=== PATIENT | female | born 1955 | race Asian ===

== ENCOUNTER 2019-01-10 18:14 | Inpatient (IN) | payer MEDICARE, OTHER ==
--- NOTE | 2019-01-10 18:38 | ED Physician Chart ---
ED Chief Complaint/HPI - Patient Information Date Seen:: 01/10/19 Time Seen:: 18:33 Chief Complaint:: mental disorder History of Present Illness:: this is a 63 yo female [facility] and treatment of her recent increase anxiety and mentation. Allergies:: Allergies Allergy/AdvReac Type Severity Reaction Status Date / Time No Known Allergies Allergy Verified 01/10/19 18:32 Historian:: Patient, Medical Records Review:: Nurse's Note Reviewed, Transfer documents Reviewed ED Review of Systems - Review of Systems General/Constitutional: No fever, No chills, No weight loss, No weakness, No diaphoresis, No edema, No loss of appetite, Other (this patient is unable to give a review of systems.) Skin: No skin lesions, No rash, No bruising Head: No headache, No light-headedness Eyes: No loss of vision, No pain, No diplopia ENT: No earache, No nasal drainage, No sore throat, No tinnitus Neck: No neck pain, No swelling, No thyromegaly, No stiffness, No mass noted Cardio Vascular: No chest pain, No palpitations, No PND, No orthopnea, No edema Pulmonary: No SOB, No cough, No sputum, No wheezing GI: No nausea, No vomiting, No diarrhea, No pain, No melena, No hematochezia, No constipation, No hematemesis G/U: No dysuria, No frequency, No hematuria Musculoskeletal: No bone or joint pain, No back pain, No muscle pain Endocrine: No polyuria, No polydipsia Psychiatric: No prior psych history, No depression, No anxiety, No suicidal ideation Hematopoietic: No bruising, No lymphadenopathy Allergic/Immuno: No urticaria, No angioedema Neurological: No syncope, No focal symptoms, No weakness, No paresthesia, No headache, No seizure, No dizziness, No confusion, No vertigo ED Past Medical History - Past Medical History Obtainable: Yes Past Medical History: HTN, DM, Dyslipidemia, Dementia, Other (parkinson's ) Family History: None Social History: Non Smoker, No Alcohol, No Drug Use, Care Facility Surgical History: None Psychiatricy History: Depression Medication: Reviewed ED Physical Exam - Physical Examination General/Constitutional: Awake, Well-developed, well-nourished, Alert, No distress, GCS 15, Non-toxic appearing, Ambulatory Head: Atraumatic Eyes: Lids, conjuctiva normal, PERRL, EOMI Skin: Nl inspection, No rash, No skin lesions, No ecchymosis, Well hydrated, No lymphadenopathy ENMT: External ears, nose nl, Nasal exam nl, Lips, teeth, gums nl Neck: Nontender, Full ROM w/o pain, No JVD, No nuchal rigidity, No bruit, No mass, No stridor Respiratory: Nl effort/Exclusion, Clear to Auscultation, No Wheeze/Rhonchi/Rales Cardio Vascular: RRR, No murmur, gallop, rubs, NL S1 S2 GI: No tenderness/rebounding/guarding, No organomegaly, No hernia, Normal BS's, Nondistended, No mass/bruits, No McBurney tenderness : No CVA tenderness Extremities: No tenderness or effusion, Full ROM, normal strength in all extremities, No edema, Normal digits & nails Neuro/Psych: Alert/oriented, DTR's symmetric, Normal sensory exam, Normal motor strength, Judgement/insight normal, Mood normal, Normal gait, No focal deficits Misc: Normal back, No paraspinal tenderness ED Assessment - Assessment General Assessment: mental disorder ED Septic Shock - . Is Septic Shock (SBP<90, OR Lactate>4 mmol\L) present?: No ED Reassessment (Disposition) - Patient Disposition Admitting Medical Physician:: Brian Duval Admitting Psych Physician:: Kp Dasilva
[2019-01-10 19:03] LABS: % EOSINOPHILS 0.8 % (0.0-5.0); % LYMPHOCYTES 11.6 % (20.0-50.0); % MONOCYTES 4.8 % (2.0-10.0); % NEUTROPHILS 82.8 % (40.0-80.0); EOSINOPHILE ABSOLUTE 0.1 Th/cmm (0.1-0.4); HEMATOCRIT 39.4 % (41.0-60); HEMOGLOBIN 12.8 gm/dL (12-16); LYMPHOCYTE ABSOLUTE 1.3 Th/cmm (1.5-3.0); MEAN CORPUSCULAR HEMOGLOBIN 28.2 pg (27.0-31.0); MEAN CORPUSCULAR HGB CONC 32.4 pg (28.0-36.0); MONOCYTE ABSOLUTE 0.5 Th/cmm (0.3-1.0); PLATELET COUNT 260 Th/cmm (150-400); RED BLOOD COUNT 4.53 Mil/cmm (3.80-5.20); RED CELL DISTRIBUTION WIDTH 12.2 % (11.5-20.0); WHITE BLOOD COUNT 10.9 Th/cmm (4.8-10.8)
[2019-01-10 19:17] LABS: INR 0.93 (0.5-1.4); PROTHROMBIN TIME (TEST) 9.7 SECONDS (9.5-11.5)
[2019-01-10 19:18] LABS: ALB/GLOB RATIO 1.4 (1.0-1.8); ANION GAP 14.4 (7.0-16.0); BILIRUBIN,TOTAL 0.4 mg/dL (0.3-1.0); CALCIUM SERUM 9.9 mg/dL (8.6-10.3); CREATININE - SERUM 1.4 mg/dL (0.6-1.2); GFR AFRICAN-AMERICAN 48.5 ml/min (>90); GFR NON AFRICAN-AMERICAN 40.1 ml/min; POTASSIUM SERUM 4.4 mEq/L (3.5-5.1); TOTAL PROTEIN,SERUM 6.9 gm/dL (6.0-8.3)
[2019-01-10 21:18] LABS: URINE SOURCE CLEAN C
[2019-01-10 21:22] LABS: URINE BILIRUBIN SMALL (NEGATIVE); URINE BLOOD NEGATIVE (NEGATIVE); URINE GLUCOSE (UA) NEGATIVE (NEGATIVE); URINE KETONE 15 mg/dL (NEGATIVE); URINE LEUKOCYTE ESTERASE TRACE (NEGATIVE); URINE MICROSCOPIC INDICATED? YES; URINE NITRATE NEGATIVE (NEGATIVE); URINE PROTEIN 30 mg/dL (NEGATIVE)
[2019-01-10 21:24] LABS: URINE CLARITY CLEAR (CLEAR); URINE COLOR YELLOW
[2019-01-10 21:28] LABS: URINE BACTERIA 1+ /hpf (NONE SEEN); URINE EPITHELIAL CELLS MODERATE /lpf (FEW); URINE FINE GRANULAR CAST 0-2 /lpf (NONE SEEN); URINE RBC 0-2 /hpf (0-5)
[2019-01-10 22:12] VITALS: BP 138/92
[2019-01-10] MEDS ORDERED: Maalox 30 mL Cup PO PRN (22:13)
[2019-01-10] MEDS ORDERED: Magnesium Hydroxide (MOM) 30 mL UDC PO PRN (22:13)
[2019-01-11 06:52] LABS: CHOLESTEROL 109 mg/dL (<200); HDL -HIGH DENSITY LIPOPROTEIN 48 mg/dL (23-92); TRIGLYCERIDES 53 mg/dL (<150)
[2019-01-11] MEDS: Multivitamin Tab PO SCH (09:10)
[2019-01-11] MEDS: Calcium Carb/Vit D 500 mg/200 U Tab PO SCH (09:11)
--- NOTE | 2019-01-11 09:45 | Diagnostic Imaging Report ---
Chest x-ray single view History: Shortness of breath Comparison: None The heart size is normal. No focal pulmonary parenchymal processes. No hilar or mediastinal abnormalities. Impression: No acute abnormalities
--- NOTE | 2019-01-11 09:46 | Diagnostic Imaging Report ---
CT scan of the brain without intravenous contrast HISTORY: Shortness of breath Total DLP equals 573 CTDI equals 35.2 Axial sections were obtained from the base of the skull to the vertex. There is prominence/enlargement of the ventricular system size. Associated enlargement of cerebral sulci and subarachnoid cisterns. Findings are consistent with changes of generalized cerebral atrophy. No acute parenchymal abnormalities. No acute cerebral hemorrhage. Hypodensity is seen within the supratentorial white matter regions without mass effect. The findings may be associated with chronic small vessel ischemic disease. No extra-axial masses or abnormal fluid collections. Vascular calcifications noted . IMPRESSION: 1. No acute abnormalities 2. Cerebral atrophy 3. Supratentorial white matter changes that may reflect chronic small vessel ischemic disease
--- NOTE | 2019-01-11 12:23 | Psychiatric Evaluation ---
DATE OF SERVICE: 01/10/2019 IDENTIFYING DATA: The patient is a 63-year-old woman, resident of [facility]. Information obtained by directly interviewing the patient as well as reviewing the admission papers and they are reliable. JUSTIFICATION FOR HOSPITALIZATION: The patient is admitted here on a voluntary basis in view of her depression and anxiety. CHIEF COMPLAINT: "I am not feeling well." HISTORY OF PRESENT ILLNESS: This is the first psychiatric hospitalization to [facility] for this patient who is reported to have been extremely depressed and throwing herself onto the floor and having crying spells on and off. The patient is not able to care for self and hence the patient has been referred to a higher level of care. PAST PSYCHIATRIC HISTORY: Details are not known. MEDICAL HISTORY: Physical examination is requested by Dr. Duval. The patient has been diagnosed to have multiple problems such as the hyperlipidemia, diabetes, Parkinson's disease, and hypertension. ALLERGIES: No allergies are reported at this time. STRENGTH AND ASSETS: The patient is motivated. SUBSTANCE ABUSE HISTORY: None. PHYSICAL OR SEXUAL ABUSE HISTORY: Details are not known. MENTAL STATUS EXAMINATION: The patient is a 63-year-old woman looking her stated age, superficially cooperative. Eye contact is poor. Mood is a little bit depressed. Affect is constricted. The patient's insight and judgment at this time are noted to be still impaired. Impulse control is noted to be poor. Coping skills are also noted to be very poor. The patient has been having difficult time to cope with the stress. The patient is isolative and withdrawn at this time. The patient is not able to provide much of information. The patient has paranoid delusions, but denies any command hallucinations and the patient is going to be currently placed on olanzapine and mirtazapine and the patient is going to be closely monitored with these medications. The patient is also on the valproic acid for her mood swings. DIAGNOSTIC IMPRESSION: AXIS I: Psychotic disorder, not otherwise specified. 2. Rule out schizoaffective disorder. AXIS II: None. AXIS III: As per Dr. Duval. IMMEDIATE TREATMENT PLAN: The patient is going to be continued on these medications. Encouraged to participate in the groups and verbalize the concerns. Once stabilized, the patient is going to be discharged to [facility] to be followed up on an outpatient basis. JOB# [id number]
--- NOTE | 2019-01-11 14:13 | History and Physical ---
History of Present Illness - HPI Chief Complaint: 63 y/o female patent was brought into the ER due to Increased anxiety and Mentation. HPI: 63 y/o female patent was admitted to [facility] due to Increased anxiety and Mentation. Patient has history of Hypertension, Diabetes Mellitus, Hyperlipidemia, Depression and Parkinson's Disease. Patient had an ER assessment and was evaluated. Patient had a complete workup done. Chest x-ray was done which showed No acute abnormalities. Ct scan of the brain was also done which showed No acute abnormalities, Cerebralatrophy and Supratentorial white matter changes that may reflect chronic small vessel ischemic disease. Patient was diagnosed with Psychotic Disorder, Rule out Schizoaffective Disorder , Hypertension, Diabetes Mellitus, Hyperlipidemia, Depression and Parkinson's Disease. Patient will have a Psyche consult and I will follow patient. Patient will continue to be treated and monitored. Patient will continue present treatment plan as ordered. Vital Signs: Last Vital Signs Temp 98 F 01/11/19 06:06 Pulse 84 01/11/19 06:06 Resp 18 01/11/19 06:06 BP 109/67 01/11/19 06:06 Pulse Ox 97 01/11/19 06:06 Past Medical History Cardiovascular: Report: HTN Pulmonary: Report: No Pertinent Hx INOCULATOR: Report: Dementia, Other (History of Parkinson's disease.) Psych: Report: Anxiety, Depression, Other (Mood swings.) Musculoskeletal: Report: No Pertinent Hx, Weakness Rheumatologic: Report: No pertinent Hx Infectious Disease: Report: No Pertinent Hx Renal/: Report: No Pertinent Hx Endocrine: Report: Diabetes Dermatology: Report: No Pertinent Hx - Past Surgical History Past Surgical History: No pertinent Hx Family Medical History - Family Member Mother History Unknown: Yes Ethnicity: Unknown Living Status: Unknown Hx Family Cancer: No Hx Family Coronary Artery Disease: No Hx Family Congestive Heart Failure: No Hx Family Hypertension: No Hx Family Stroke: No Hx Family Diabetes: No Hx Family Seizures: No Hx Family Dementia: No Hx Family AIDS: No Hx Family HIV: No Hx Family COPD: No Hx Family Hepatitis: No Hx Family Psychiatric Problems: No Hx Family Tuberculosis: No Social History Smoke: No Alcohol: None Drugs: None Lives: [facility] Domestic Violence: Negative Health Maintenance Health Maintenance: Other (see chart.) - Medications Home Medications: Home Medication Medication Instructions Recorded Type Acetaminophen [Tylenol] 650 mg PO Q6H PRN 01/10/19 History Atorvastatin Calcium [Lipitor] 20 mg PO HS 01/10/19 History Calcium Carbonate/Vitamin D3 1 each PO DAILY 01/10/19 History [Calcium 500 + Vit D Caplet] Carbidopa/Levodopa 2 odt PO AC 01/10/19 History [Carbidopa/Levodopa 25 mg-100 mg] Divalproex DR [Depakote DR] 125 mg PO BID 01/10/19 History Lamotrigine [Lamictal] 200 mg PO BID 01/10/19 History Lorazepam [Ativan] 0.5 mg PO Q6H PRN 01/10/19 History Meclizine HCl 25 mg PO TID 01/10/19 History Mirtazapine [Remeron] 7.5 mg PO HS 01/10/19 History OLANZapine [ZyPREXA] 2.5 mg PO DAILY 01/10/19 History OLANZapine [ZyPREXA] 12.5 mg PO HS 01/10/19 History Sennosides A and B [Senna] 8.6 mg PO BID 01/10/19 History metFORMIN [Glucophage] 500 mg PO DAILY 01/10/19 History Other Medications: please see medication reconciliation sheet. - Allergies Allergies/Adverse Reactions: Allergies Allergy/AdvReac Type Severity Reaction Status Date / Time No Known Allergies Allergy Verified 01/10/19 18:32 Review of Systems - Review of Systems Constitutional: Report: No Significant Eyes: Report: No Significant ENT: Report: No Significant Respiratory: Report: No Significant Cardiovascular: Report: No Significant Gastrointestinal: Report: No Significant Genitourinary: Report: No Significant Musculoskeletal: Report: No Significant Skin: Report: No Significant Neurological: Report: Other (Mood swings.) Physical Exam - Physical Exam HEENT: Report: Ears Nose Throat within normal limits Neck: Report: Within normal limits Cardiovascular Systems: Report: +s1/s2 noted Respiratory: Report: Breath Sounds are within normal limits Abdomen: Report: Non-tender to palpation Back: Report: Inspection of back is within normal limits. Extremities: Report: Non-tender to palpation. Skin: Report: Color of skin is within normal limits Neuro/Psych: Report: Depressed affect - Lab Results All Lab Results last 24 hours: Laboratory Results - last 24 hr 01/10/19 01/10/19 01/10/19 18:59 18:59 18:59 WBC RBC Hgb Hct MCV MCH MCHC Differential RDW Plt Count MPV Neutrophils % Lymphocytes % Monocytes % Eosinophils % Basophils % PT 9.7 INR 0.93 PTT (Actin FS) 20.6 L Sodium Potassium Chloride Carbon Dioxide Anion Gap BUN Creatinine Est GFR ( Amer) Est GFR (Non-Af Amer) BUN/Creatinine Ratio Glucose Calcium Total Bilirubin AST ALT Alkaline Phosphatase Troponin I < 0.01 L Total Protein Albumin Globulin Albumin/Globulin Ratio Triglycerides Cholesterol LDL Cholesterol Direct HDL Cholesterol TSH 0.89 Urine Source Urine Color Urine Clarity Urine pH Ur Specific [place] Urine Protein Urine Glucose (UA) Urine Ketones Urine Blood Urine Nitrate Urine Bilirubin Urine Urobilinogen Ur Leukocyte Esterase Urine RBC Urine WBC Ur Epithelial Cells Urine Bacteria Fine Granular Casts Urine Mucus 01/10/19 01/10/19 01/10/19 18:59 18:59 19:55 WBC 10.9 H RBC 4.53 Hgb 12.8 Hct 39.4 L MCV 87.0 MCH 28.2 MCHC Differential 32.4 RDW 12.2 Plt Count 260 MPV 7.0 Neutrophils % 82.8 H Lymphocytes % 11.6 L Monocytes % 4.8 Eosinophils % 0.8 Basophils % 0.0 PT INR PTT (Actin FS) Sodium 140 Potassium 4.4 Chloride 101 Carbon Dioxide 29.0 Anion Gap 14.4 BUN 24 Creatinine 1.4 H Est GFR ( Amer) 48.5 Est GFR (Non-Af Amer) 40.1 BUN/Creatinine Ratio 17.1 Glucose 160 H Calcium 9.9 Total Bilirubin 0.4 AST 16 ALT 6 L Alkaline Phosphatase 45 Troponin I Total Protein 6.9 Albumin 4.0 Globulin 2.9 Albumin/Globulin Ratio 1.4 Triglycerides Cholesterol LDL Cholesterol Direct HDL Cholesterol TSH Urine Source CLEAN C Urine Color YELLOW Urine Clarity CLEAR Urine pH 7.0 Ur Specific [place] 1.020 Urine Protein 30 H Urine Glucose (UA) NEGATIVE Urine Ketones 15 H Urine Blood NEGATIVE Urine Nitrate NEGATIVE Urine Bilirubin SMALL H Urine Urobilinogen 1.0 Ur Leukocyte Esterase TRACE H Urine RBC 0-2 Urine WBC 6-10 H Ur Epithelial Cells MODERATE Urine Bacteria 1+ H Fine Granular Casts 0-2 H Urine Mucus MODERATE 01/11/19 06:15 WBC RBC Hgb Hct MCV MCH MCHC Differential RDW Plt Count MPV Neutrophils % Lymphocytes % Monocytes % Eosinophils % Basophils % PT INR PTT (Actin FS) Sodium Potassium Chloride Carbon Dioxide Anion Gap BUN Creatinine Est GFR ( Amer) Est GFR (Non-Af Amer) BUN/Creatinine Ratio Glucose Calcium Total Bilirubin AST ALT Alkaline Phosphatase Troponin I Total Protein Albumin Globulin Albumin/Globulin Ratio Triglycerides 53 Cholesterol 109 LDL Cholesterol Direct 43 L HDL Cholesterol 48 TSH Urine Source Urine Color Urine Clarity Urine pH Ur Specific [place] Urine Protein Urine Glucose (UA) Urine Ketones Urine Blood Urine Nitrate Urine Bilirubin Urine Urobilinogen Ur Leukocyte Esterase Urine RBC Urine WBC Ur Epithelial Cells Urine Bacteria Fine Granular Casts Urine Mucus - Assessment Assessment: Psychotic Disorder. Rule out schizoaffective disorder. Anxiety. Depression. HTN. DM. Dyslipidemia. Dementia. Parkinson's Disease. Current Active Problems Problem Status Onset FREQUENT FALLS WITH BEHAVIORAL CHANGE Acute - Plan Plan: Continuation of care. Continue present meds as directed. Monitor diet. Psych consult. Fall precaution. supportive care. Continue present care treatment plan.
[2019-01-11] MEDS: Atorvastatin Calcium 10 MG TAB PO SCH (20:58)
[2019-01-12] MEDS: Calcium Carb/Vit D 500 mg/200 U Tab PO SCH (09:53)
[2019-01-12] MEDS: Multivitamin Tab PO SCH (09:53)
[2019-01-12] MEDS: Atorvastatin Calcium 10 MG TAB PO SCH (20:47)
--- NOTE | 2019-01-12 23:45 | Progress Notes ---
DATE: 01/12/2019 SUBJECTIVE: Staff was spoken to. The patient is interviewed. Mood is noted to be depressed. Affect is constricted. Continues to be isolative and withdrawn. Paranoid delusions are noted and the patient's insight and judgment are noted to be still impaired. Impulse control seems to be limited. The patient is, however, able to tolerate the medication. ASSESSMENT: The patient is still psychotic and depressed. PLAN: To continue the patient with the supportive therapy, encouraged the patient to verbalize the concerns rather than to act out. JOB# [id number]
--- NOTE | 2019-01-13 03:06 | Consultation ---
DATE OF CONSULTATION: 01/12/2019 REFERRING PHYSICIAN: Kp Dasilva MD TYPE OF CONSULTATION: Psychology. HISTORY OF PRESENT ILLNESS: The patient is a 63-year-old female. The patient is a resident of [facility]. The following is by review of the medical record as well as by the patient's self-report. The patient is being admitted due to depression and anxiety. Upon interview, the patient states that she is not feeling well. The staff at the patient's facility reported that she had become extremely depressed with crying spells and at times throwing herself onto the floor. The patient did not answer questions about suicidal ideation, plan, or intention at the time of this clinical interview. PAST MEDICAL HISTORY: Please see history and physical by Dr. Duval. PAST PSYCHIATRIC HISTORY: Records are unavailable. Details are unknown. SUBSTANCE ABUSE HISTORY: The patient denied any history of alcohol, tobacco, or illicit drug use. PSYCHOSOCIAL HISTORY: The patient did not answer questions about occupational or educational history. The patient states she is . She states she has one son named Kareem and a friend named Ana Rosa that are involved in her care. The patient stated no specific buddhist affiliation. The patient denied any history of physical or sexual abuse. She denies any current legal problems. The patient expects to return to her facility upon discharge. MENTAL STATUS EXAMINATION: The patient appears to be her stated age. Attitude is superficially cooperative. Eye contact is poor. Speech is slow. Mood is depressed. Affect is constricted. Thought process shows to be depressogenic and somewhat confused. The patient denied any auditory or visual hallucinations. The patient denied any suicidal ideation, plan, or intention. There is possible paranoid ideation. The patient's behavior by history has been isolative and withdrawn. The patient did not answer questions regarding throwing herself on the floor or having tearful episodes. Impulse control is inadequate. Concentration is poor. This needs further evaluation. The patient's sensorium is alert and oriented to self and place. The patient did not participate in the memory assessment. The patient did not participate in the interpretation of proverbs. Insight is poor. Judgment is compromised. DIAGNOSTIC IMPRESSION: AXIS I: Psychotic disorder, not otherwise specified. AXIS II: Deferred. AXIS III: Per Dr. Duval. TREATMENT PLAN: The patient has been seen by Dr. Dasilva for psychiatric evaluation and for the management of the patient's psychotropic medications. The patient is continued on her current medication according to the attending psychiatrist. We will provide supportive psychotherapy to include reality orientation, differentiation, and integration. We will provide coping strategies for phase of life issues. We will encourage the patient to verbalize her concerns. We will provide a daily opportunity for the patient to contract for safety. We will provide motivational enhancement for the patient to become compliant and stay compliant with all aspects of her care and treatment. Thank you, Dr. Dasilva, for this consult and the opportunity to participate in this patient's care. JOB# [id number] [place]
[2019-01-13] MEDS: Calcium Carb/Vit D 500 mg/200 U Tab PO SCH (09:07)
[2019-01-13] MEDS: Multivitamin Tab PO SCH (09:08)
--- NOTE | 2019-01-13 17:04 | Internal Medicine Prog Note ---
Internal Medicine Subjective - Subjective Service Date: 01/13/19 Patient seen and examined:: with staff Patient is:: awake Per staff patient has:: tolerating meds Internal Medicine Objective - Results Result Diagrams: 01/10/19 18:59 01/10/19 18:59 Recent Labs: Laboratory Last Values WBC 10.9 Th/cmm (4.8-10.8) H 01/10/19 18:59 RBC 4.53 Mil/cmm (3.80-5.20) 01/10/19 18:59 Hgb 12.8 gm/dL (12-16) 01/10/19 18:59 Hct 39.4 % (41.0-60) L 01/10/19 18:59 MCV 87.0 fl (81-100) 01/10/19 18:59 MCH 28.2 pg (27.0-31.0) 01/10/19 18:59 MCHC Differential 32.4 pg (28.0-36.0) 01/10/19 18:59 RDW 12.2 % (11.5-20.0) 01/10/19 18:59 Plt Count 260 Th/cmm (150-400) 01/10/19 18:59 MPV 7.0 fl 01/10/19 18:59 Neutrophils % 82.8 % (40.0-80.0) H 01/10/19 18:59 Lymphocytes % 11.6 % (20.0-50.0) L 01/10/19 18:59 Monocytes % 4.8 % (2.0-10.0) 01/10/19 18:59 Eosinophils % 0.8 % (0.0-5.0) 01/10/19 18:59 Basophils % 0.0 % (0.0-2.0) 01/10/19 18:59 PT 9.7 SECONDS (9.5-11.5) 01/10/19 18:59 INR 0.93 (0.5-1.4) 01/10/19 18:59 PTT (Actin FS) 20.6 SECONDS (26.0-38.0) L 01/10/19 18:59 Sodium 140 mEq/L (136-145) 01/10/19 18:59 Potassium 4.4 mEq/L (3.5-5.1) 01/10/19 18:59 Chloride 101 mEq/L (98-107) 01/10/19 18:59 Carbon Dioxide 29.0 mEq/L (21.0-31.0) 01/10/19 18:59 Anion Gap 14.4 (7.0-16.0) 01/10/19 18:59 BUN 24 mg/dL (7-25) 01/10/19 18:59 Creatinine 1.4 mg/dL (0.6-1.2) H 01/10/19 18:59 Est GFR ( Amer) 48.5 ml/min (>90) 01/10/19 18:59 Est GFR (Non-Af Amer) 40.1 ml/min 01/10/19 18:59 BUN/Creatinine Ratio 17.1 01/10/19 18:59 Glucose 160 mg/dL (70-105) H 01/10/19 18:59 Calcium 9.9 mg/dL (8.6-10.3) 01/10/19 18:59 Total Bilirubin 0.4 mg/dL (0.3-1.0) 01/10/19 18:59 AST 16 U/L (13-39) 01/10/19 18:59 ALT 6 U/L (7-52) L 01/10/19 18:59 Alkaline Phosphatase 45 U/L (34-104) 01/10/19 18:59 Troponin I < 0.01 ng/mL (0.01-0.05) L 01/10/19 18:59 Total Protein 6.9 gm/dL (6.0-8.3) 01/10/19 18:59 Albumin 4.0 gm/dL (3.7-5.3) 01/10/19 18:59 Globulin 2.9 gm/dL 01/10/19 18:59 Albumin/Globulin Ratio 1.4 (1.0-1.8) 01/10/19 18:59 Triglycerides 53 mg/dL (<150) 01/11/19 06:15 Cholesterol 109 mg/dL (<200) 01/11/19 06:15 LDL Cholesterol Direct 43 mg/dL (75-193) L 01/11/19 06:15 HDL Cholesterol 48 mg/dL (23-92) 01/11/19 06:15 TSH 0.89 uIU/ml (0.34-5.60) 01/10/19 18:59 Urine Source CLEAN C 01/10/19 19:55 Urine Color YELLOW 01/10/19 19:55 Urine Clarity CLEAR (CLEAR) 01/10/19 19:55 Urine pH 7.0 (4.6 - 8.0) 01/10/19 19:55 Ur Specific [place] 1.020 (1.005-1.030) 01/10/19 19:55 Urine Protein 30 mg/dL (NEGATIVE) H 01/10/19 19:55 Urine Glucose (UA) NEGATIVE mg/dL (NEGATIVE) 01/10/19 19:55 Urine Ketones 15 mg/dL (NEGATIVE) H 01/10/19 19:55 Urine Blood NEGATIVE (NEGATIVE) 01/10/19 19:55 Urine Nitrate NEGATIVE (NEGATIVE) 01/10/19 19:55 Urine Bilirubin SMALL (NEGATIVE) H 01/10/19 19:55 Urine Urobilinogen 1.0 E.U./dL (0.2 - 1.0) 01/10/19 19:55 Ur Leukocyte Esterase TRACE (NEGATIVE) H 01/10/19 19:55 Urine RBC 0-2 /hpf (0-5) 01/10/19 19:55 Urine WBC 6-10 /hpf (0-5) H 01/10/19 19:55 Ur Epithelial Cells MODERATE /lpf (FEW) 01/10/19 19:55 Urine Bacteria 1+ /hpf (NONE SEEN) H 01/10/19 19:55 Fine Granular Casts 0-2 /lpf (NONE SEEN) H 01/10/19 19:55 Urine Mucus MODERATE /lpf (FEW) 01/10/19 19:55 - Physical Exam Vitals and I&O: Vital Signs Temp 96.8 F 01/13/19 14:09 Pulse 78 01/13/19 14:09 Resp 20 01/13/19 14:09 BP 107/69 01/13/19 14:09 Pulse Ox 98 01/13/19 14:09 Intake & Output 01/12/19 01/13/19 01/13/19 18:59 06:59 18:59 Intake Total 300 Balance 300 Intake: Oral 300 Other: # Voids 1 # Bowel Movements 1 Stool Characteristics Formed Formed Active Medications: Current Medications Acetaminophen (Tylenol) 650 mg PO Q4HR PRN PRN Reason: Mild Pain / Temp above 100 Stop: 03/11/19 22:35 Al Hydrox/Mg Hydrox/Simethicone (Maalox) 30 ml PO Q4H PRN PRN Reason: GI DISTRESS Stop: 03/11/19 22:12 Atorvastatin Calcium (Lipitor) 20 mg PO HS [facility] Stop: 03/12/19 20:59 Last Admin: 01/12/19 20:47 Dose: 20 mg Calcium/Vitamin D (Oscal W/Vitamin D) 1 tab PO DAILY [facility] Stop: 03/12/19 08:59 Last Admin: 01/13/19 09:07 Dose: 1 tab Carbidopa/Levodopa (Sinemet 25mg-100 Mg) 2 tab PO TIDWM [facility] Stop: 03/12/19 07:59 Last Admin: 01/13/19 13:59 Dose: Not Given Divalproex Sodium (Depakote Dr) 125 mg PO BID [facility]; Protocol Stop: 03/12/19 08:59 Last Admin: 01/13/19 09:07 Dose: 125 mg Lorazepam (Ativan) 0.5 mg PO Q4H PRN; Protocol PRN Reason: Anxiety Stop: 03/11/19 22:12 Magnesium Hydroxide (Milk Of Magnesia) 30 ml PO HS PRN PRN Reason: Constipation Metformin HCl (Glucophage) 500 mg PO TID [facility] Stop: 03/12/19 08:59 Last Admin: 01/13/19 13:59 Dose: 500 mg Mirtazapine (Remeron) 7.5 mg PO HS [facility]; Protocol Stop: 03/12/19 20:59 Last Admin: 01/12/19 20:47 Dose: 7.5 mg Multivitamins/Vitamin C (Theragran) 1 tab PO DAILY [facility] Stop: 03/12/19 08:59 Last Admin: 01/13/19 09:08 Dose: 1 tab Olanzapine (Zyprexa) 10 mg PO HS [facility]; Protocol Stop: 03/12/19 20:59 Last Admin: 01/12/19 20:47 Dose: 10 mg Senna (Senna) 8.6 mg PO BID [facility] Stop: 03/12/19 08:59 Last Admin: 01/13/19 09:08 Dose: 8.6 mg Zolpidem Tartrate (Ambien) 5 mg PO HS PRN PRN Reason: Insomnia Stop: 03/11/19 22:12 Last Admin: 01/12/19 20:47 Dose: 5 mg General: weak HEENT: NC/AT, PERRLA Neck: Supple Lungs: CTAB Cardiovascular: without murmur Internal Medicine Assmt/Plan - Assessment Assessment: Psychotic Disorder. Rule out schizoaffective disorder. Anxiety. Depression. HTN. DM. Dyslipidemia. Dementia. Parkinson's Disease. - Plan Plan: continue current plan of care
[2019-01-13] MEDS: Atorvastatin Calcium 10 MG TAB PO SCH (20:58)
--- NOTE | 2019-01-14 04:18 | Progress Notes ---
DATE: 01/13/2019 SUBJECTIVE: Staff was spoken to. The patient is interviewed. Mood is noted to be irritable. Affect is constricted. Insight and judgment noted to be still impaired. Impulse control is noted to be poor. Coping skills are noted to be very poor. The patient has been having difficult time to cope with the stress. The patient has been paranoid, still. The patient is still not able to contract for safety. ASSESSMENT: The patient is still psychotic and impulsive. PLAN: To continue the patient with the supportive therapy and followup. JOB# [id number]
[2019-01-14] MEDS: Calcium Carb/Vit D 500 mg/200 U Tab PO SCH (08:42)
[2019-01-14] MEDS: Multivitamin Tab PO SCH (08:42)
--- NOTE | 2019-01-14 12:19 | Internal Medicine Prog Note ---
Internal Medicine Subjective - Subjective Service Date: 01/14/19 Patient seen and examined:: with staff, chart reviewed Patient is:: awake, confused, other (remains paranoid. ) Patient Complaints of:: other (Patient is still psychotic and impulsive.) Per staff patient has:: no adverse event, no episodes of fall, tolerating meds Internal Medicine Objective - Results Result Diagrams: 01/10/19 18:59 01/10/19 18:59 Recent Labs: Laboratory Last Values WBC 10.9 Th/cmm (4.8-10.8) H 01/10/19 18:59 RBC 4.53 Mil/cmm (3.80-5.20) 01/10/19 18:59 Hgb 12.8 gm/dL (12-16) 01/10/19 18:59 Hct 39.4 % (41.0-60) L 01/10/19 18:59 MCV 87.0 fl (81-100) 01/10/19 18:59 MCH 28.2 pg (27.0-31.0) 01/10/19 18:59 MCHC Differential 32.4 pg (28.0-36.0) 01/10/19 18:59 RDW 12.2 % (11.5-20.0) 01/10/19 18:59 Plt Count 260 Th/cmm (150-400) 01/10/19 18:59 MPV 7.0 fl 01/10/19 18:59 Neutrophils % 82.8 % (40.0-80.0) H 01/10/19 18:59 Lymphocytes % 11.6 % (20.0-50.0) L 01/10/19 18:59 Monocytes % 4.8 % (2.0-10.0) 01/10/19 18:59 Eosinophils % 0.8 % (0.0-5.0) 01/10/19 18:59 Basophils % 0.0 % (0.0-2.0) 01/10/19 18:59 PT 9.7 SECONDS (9.5-11.5) 01/10/19 18:59 INR 0.93 (0.5-1.4) 01/10/19 18:59 PTT (Actin FS) 20.6 SECONDS (26.0-38.0) L 01/10/19 18:59 Sodium 140 mEq/L (136-145) 01/10/19 18:59 Potassium 4.4 mEq/L (3.5-5.1) 01/10/19 18:59 Chloride 101 mEq/L (98-107) 01/10/19 18:59 Carbon Dioxide 29.0 mEq/L (21.0-31.0) 01/10/19 18:59 Anion Gap 14.4 (7.0-16.0) 01/10/19 18:59 BUN 24 mg/dL (7-25) 01/10/19 18:59 Creatinine 1.4 mg/dL (0.6-1.2) H 01/10/19 18:59 Est GFR ( Amer) 48.5 ml/min (>90) 01/10/19 18:59 Est GFR (Non-Af Amer) 40.1 ml/min 01/10/19 18:59 BUN/Creatinine Ratio 17.1 01/10/19 18:59 Glucose 160 mg/dL (70-105) H 01/10/19 18:59 Calcium 9.9 mg/dL (8.6-10.3) 01/10/19 18:59 Total Bilirubin 0.4 mg/dL (0.3-1.0) 01/10/19 18:59 AST 16 U/L (13-39) 01/10/19 18:59 ALT 6 U/L (7-52) L 01/10/19 18:59 Alkaline Phosphatase 45 U/L (34-104) 01/10/19 18:59 Troponin I < 0.01 ng/mL (0.01-0.05) L 01/10/19 18:59 Total Protein 6.9 gm/dL (6.0-8.3) 01/10/19 18:59 Albumin 4.0 gm/dL (3.7-5.3) 01/10/19 18:59 Globulin 2.9 gm/dL 01/10/19 18:59 Albumin/Globulin Ratio 1.4 (1.0-1.8) 01/10/19 18:59 Triglycerides 53 mg/dL (<150) 01/11/19 06:15 Cholesterol 109 mg/dL (<200) 01/11/19 06:15 LDL Cholesterol Direct 43 mg/dL (75-193) L 01/11/19 06:15 HDL Cholesterol 48 mg/dL (23-92) 01/11/19 06:15 TSH 0.89 uIU/ml (0.34-5.60) 01/10/19 18:59 Urine Source CLEAN C 01/10/19 19:55 Urine Color YELLOW 01/10/19 19:55 Urine Clarity CLEAR (CLEAR) 01/10/19 19:55 Urine pH 7.0 (4.6 - 8.0) 01/10/19 19:55 Ur Specific [place] 1.020 (1.005-1.030) 01/10/19 19:55 Urine Protein 30 mg/dL (NEGATIVE) H 01/10/19 19:55 Urine Glucose (UA) NEGATIVE mg/dL (NEGATIVE) 01/10/19 19:55 Urine Ketones 15 mg/dL (NEGATIVE) H 01/10/19 19:55 Urine Blood NEGATIVE (NEGATIVE) 01/10/19 19:55 Urine Nitrate NEGATIVE (NEGATIVE) 01/10/19 19:55 Urine Bilirubin SMALL (NEGATIVE) H 01/10/19 19:55 Urine Urobilinogen 1.0 E.U./dL (0.2 - 1.0) 01/10/19 19:55 Ur Leukocyte Esterase TRACE (NEGATIVE) H 01/10/19 19:55 Urine RBC 0-2 /hpf (0-5) 01/10/19 19:55 Urine WBC 6-10 /hpf (0-5) H 01/10/19 19:55 Ur Epithelial Cells MODERATE /lpf (FEW) 01/10/19 19:55 Urine Bacteria 1+ /hpf (NONE SEEN) H 01/10/19 19:55 Fine Granular Casts 0-2 /lpf (NONE SEEN) H 01/10/19 19:55 Urine Mucus MODERATE /lpf (FEW) 01/10/19 19:55 - Physical Exam Vitals and I&O: Vital Signs Temp 96.7 F 01/14/19 06:15 Pulse 65 01/14/19 06:15 Resp 18 01/14/19 08:00 BP 124/66 01/14/19 06:15 Pulse Ox 95 01/14/19 06:15 Intake & Output 01/13/19 01/14/19 01/14/19 18:59 06:59 18:59 Intake Total 240 Balance 240 Intake: Oral 240 Other: # Voids 2 1 # Bowel Movements 0 0 Stool Characteristics Formed Active Medications: Current Medications Acetaminophen (Tylenol) 650 mg PO Q4HR PRN PRN Reason: Mild Pain / Temp above 100 Stop: 03/11/19 22:35 Al Hydrox/Mg Hydrox/Simethicone (Maalox) 30 ml PO Q4H PRN PRN Reason: GI DISTRESS Stop: 03/11/19 22:12 Atorvastatin Calcium (Lipitor) 20 mg PO HS [facility] Stop: 03/12/19 20:59 Last Admin: 01/13/19 20:58 Dose: 20 mg Calcium/Vitamin D (Oscal W/Vitamin D) 1 tab PO DAILY [facility] Stop: 03/12/19 08:59 Last Admin: 01/14/19 08:42 Dose: 1 tab Carbidopa/Levodopa (Sinemet 25mg-100 Mg) 2 tab PO TIDWM [facility] Stop: 03/12/19 07:59 Last Admin: 01/14/19 08:43 Dose: 2 tab Divalproex Sodium (Depakote Dr) 125 mg PO BID [facility]; Protocol Stop: 03/12/19 08:59 Last Admin: 01/14/19 08:43 Dose: 125 mg Lorazepam (Ativan) 0.5 mg PO Q4H PRN; Protocol PRN Reason: Anxiety Stop: 03/11/19 22:12 Magnesium Hydroxide (Milk Of Magnesia) 30 ml PO HS PRN PRN Reason: Constipation Metformin HCl (Glucophage) 500 mg PO TID [facility] Stop: 03/12/19 08:59 Last Admin: 01/14/19 08:43 Dose: 500 mg Mirtazapine (Remeron) 7.5 mg PO HS [facility]; Protocol Stop: 03/12/19 20:59 Last Admin: 01/13/19 20:59 Dose: 7.5 mg Multivitamins/Vitamin C (Theragran) 1 tab PO DAILY [facility] Stop: 03/12/19 08:59 Last Admin: 01/14/19 08:42 Dose: 1 tab Olanzapine (Zyprexa) 10 mg PO HS [facility]; Protocol Stop: 03/12/19 20:59 Last Admin: 01/13/19 20:59 Dose: 10 mg Senna (Senna) 8.6 mg PO BID [facility] Stop: 03/12/19 08:59 Last Admin: 01/14/19 08:43 Dose: 8.6 mg Zolpidem Tartrate (Ambien) 5 mg PO HS PRN PRN Reason: Insomnia Stop: 03/11/19 22:12 Last Admin: 01/13/19 20:59 Dose: 5 mg General: weak HEENT: NC/AT, PERRLA Neck: Supple Lungs: CTAB Cardiovascular: without murmur Extremities: clear Neurological: alert Internal Medicine Assmt/Plan - Assessment Assessment: Psychotic Disorder. Rule out schizoaffective disorder. Anxiety. Depression. HTN. DM. Dyslipidemia. Dementia. Parkinson's Disease. Current Active Problems Problem Status Onset FREQUENT FALL[place] WITH BEHAVIORAL CHANGE Acute - Plan Plan: Continuation of care. Continue present meds as directed. Monitor diet. Psych consult. Fall precaution. supportive care. Continue present care treatment plan. Nutritional Asmnt/Malnutr-PDOC - Dietary Evaluation Malnutrition Findings (Please click <Entered> for more info): see orders.
[2019-01-14] MEDS: Atorvastatin Calcium 10 MG TAB PO SCH (20:50)
--- NOTE | 2019-01-15 03:18 | Progress Notes ---
DATE: 01/14/2019 PSYCHOLOGY PROGRESS NOTE SUBJECTIVE: The patient is seen and is interviewed. Case is discussed with staff. The patient continues to be irritable and guarded. The staff reports the patient's impulse control is poor. The patient is having difficulty coping with stress. The patient continues to be suspicious. She was unable to contract verbally for safety. OBJECTIVE: Mood is irritable. Affect is constricted. Thought process shows to be confused. The patient is most likely responding to internal stimuli. There is paranoid ideation is present. The patient is still impulsive. ASSESSMENT AND PLAN: The patient remains to be psychotic and impulsive. We provided de-escalation. We provided remotivation for the patient to become compliant and stay compliant with all aspects of her care and treatment. We provided reality orientation, differentiation and integration. We provided coping strategies for phase of life issues. We encouraged the patient to verbalize her concerns and to demonstrate emotional and self-regulation. We will continue to offer daily opportunities for the patient to verbally contract for safety. We will follow up in 2 days to continue the present treatment. JOB# [id number] [place]
--- NOTE | 2019-01-15 05:09 | Progress Notes ---
DATE: 01/14/[address] Dasilva. SUBJECTIVE: The patient was resting in bed, alert, cooperative; however, the patient is quite confused. As soon as this loan underwriter walked into the room, the patient sat up and said that she wanted the phone to call her son. The patient was not able to say where she is, why she is here. The patient reported that she has not been eating or sleeping well. However, the patient denied any auditory or visual hallucination or delusions. The patient later on, came to the nursing station requesting for a phone to call her roommate. The patient also reported that she wants someone to call her [place] [facility] to come and pick her up. OBJECTIVE: The staff reported that the patient has been doing okay. The patient has been requesting to make phone calls to the [place] [facility] that she was staying as well as calling her son. The patient has been cooperative with the care and treatment. ASSESSMENT: The patient has a history of Parkinson's and on Sinemet. 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 Currently, the patient is on Ativan 0.5 mg q. 4 hours p.r.n., Remeron 7.5 mg at bedtime, Zyprexa 10 mg at bedtime and Ambien 5 mg at bedtime p.r.n. PLAN: Since the patient has history of Parkinson's with psychosis, would recommend changing from Zyprexa to Nuplazid which is specific for patients with Parkinson's disease with psychosis. We will check with the pharmacy to see if the medication is available. JOB# [id number]
[2019-01-15] MEDS: Calcium Carb/Vit D 500 mg/200 U Tab PO SCH (09:18)
[2019-01-15] MEDS: Multivitamin Tab PO SCH (09:18)
--- NOTE | 2019-01-15 10:02 | Internal Medicine Prog Note ---
Internal Medicine Subjective - Subjective Service Date: 01/15/19 Patient seen and examined:: with staff Patient is:: awake, confused, other (remains paranoid. ) Patient Complaints of:: other (Patient is still psychotic and impulsive.) Per staff patient has:: no adverse event, no episodes of fall, tolerating meds Internal Medicine Objective - Results Result Diagrams: 01/10/19 18:59 01/10/19 18:59 Recent Labs: Laboratory Last Values WBC 10.9 Th/cmm (4.8-10.8) H 01/10/19 18:59 RBC 4.53 Mil/cmm (3.80-5.20) 01/10/19 18:59 Hgb 12.8 gm/dL (12-16) 01/10/19 18:59 Hct 39.4 % (41.0-60) L 01/10/19 18:59 MCV 87.0 fl (81-100) 01/10/19 18:59 MCH 28.2 pg (27.0-31.0) 01/10/19 18:59 MCHC Differential 32.4 pg (28.0-36.0) 01/10/19 18:59 RDW 12.2 % (11.5-20.0) 01/10/19 18:59 Plt Count 260 Th/cmm (150-400) 01/10/19 18:59 MPV 7.0 fl 01/10/19 18:59 Neutrophils % 82.8 % (40.0-80.0) H 01/10/19 18:59 Lymphocytes % 11.6 % (20.0-50.0) L 01/10/19 18:59 Monocytes % 4.8 % (2.0-10.0) 01/10/19 18:59 Eosinophils % 0.8 % (0.0-5.0) 01/10/19 18:59 Basophils % 0.0 % (0.0-2.0) 01/10/19 18:59 PT 9.7 SECONDS (9.5-11.5) 01/10/19 18:59 INR 0.93 (0.5-1.4) 01/10/19 18:59 PTT (Actin FS) 20.6 SECONDS (26.0-38.0) L 01/10/19 18:59 Sodium 140 mEq/L (136-145) 01/10/19 18:59 Potassium 4.4 mEq/L (3.5-5.1) 01/10/19 18:59 Chloride 101 mEq/L (98-107) 01/10/19 18:59 Carbon Dioxide 29.0 mEq/L (21.0-31.0) 01/10/19 18:59 Anion Gap 14.4 (7.0-16.0) 01/10/19 18:59 BUN 24 mg/dL (7-25) 01/10/19 18:59 Creatinine 1.4 mg/dL (0.6-1.2) H 01/10/19 18:59 Est GFR ( Amer) 48.5 ml/min (>90) 01/10/19 18:59 Est GFR (Non-Af Amer) 40.1 ml/min 01/10/19 18:59 BUN/Creatinine Ratio 17.1 01/10/19 18:59 Glucose 160 mg/dL (70-105) H 01/10/19 18:59 Calcium 9.9 mg/dL (8.6-10.3) 01/10/19 18:59 Total Bilirubin 0.4 mg/dL (0.3-1.0) 01/10/19 18:59 AST 16 U/L (13-39) 01/10/19 18:59 ALT 6 U/L (7-52) L 01/10/19 18:59 Alkaline Phosphatase 45 U/L (34-104) 01/10/19 18:59 Troponin I < 0.01 ng/mL (0.01-0.05) L 01/10/19 18:59 Total Protein 6.9 gm/dL (6.0-8.3) 01/10/19 18:59 Albumin 4.0 gm/dL (3.7-5.3) 01/10/19 18:59 Globulin 2.9 gm/dL 01/10/19 18:59 Albumin/Globulin Ratio 1.4 (1.0-1.8) 01/10/19 18:59 Triglycerides 53 mg/dL (<150) 01/11/19 06:15 Cholesterol 109 mg/dL (<200) 01/11/19 06:15 LDL Cholesterol Direct 43 mg/dL (75-193) L 01/11/19 06:15 HDL Cholesterol 48 mg/dL (23-92) 01/11/19 06:15 TSH 0.89 uIU/ml (0.34-5.60) 01/10/19 18:59 Urine Source CLEAN C 01/10/19 19:55 Urine Color YELLOW 01/10/19 19:55 Urine Clarity CLEAR (CLEAR) 01/10/19 19:55 Urine pH 7.0 (4.6 - 8.0) 01/10/19 19:55 Ur Specific [place] 1.020 (1.005-1.030) 01/10/19 19:55 Urine Protein 30 mg/dL (NEGATIVE) H 01/10/19 19:55 Urine Glucose (UA) NEGATIVE mg/dL (NEGATIVE) 01/10/19 19:55 Urine Ketones 15 mg/dL (NEGATIVE) H 01/10/19 19:55 Urine Blood NEGATIVE (NEGATIVE) 01/10/19 19:55 Urine Nitrate NEGATIVE (NEGATIVE) 01/10/19 19:55 Urine Bilirubin SMALL (NEGATIVE) H 01/10/19 19:55 Urine Urobilinogen 1.0 E.U./dL (0.2 - 1.0) 01/10/19 19:55 Ur Leukocyte Esterase TRACE (NEGATIVE) H 01/10/19 19:55 Urine RBC 0-2 /hpf (0-5) 01/10/19 19:55 Urine WBC 6-10 /hpf (0-5) H 01/10/19 19:55 Ur Epithelial Cells MODERATE /lpf (FEW) 01/10/19 19:55 Urine Bacteria 1+ /hpf (NONE SEEN) H 01/10/19 19:55 Fine Granular Casts 0-2 /lpf (NONE SEEN) H 01/10/19 19:55 Urine Mucus MODERATE /lpf (FEW) 01/10/19 19:55 - Physical Exam Vitals and I&O: Vital Signs Temp 98.1 F 01/15/19 06:43 Pulse 64 01/15/19 06:43 Resp 18 01/15/19 06:43 BP 106/70 01/15/19 06:43 Pulse Ox 94 01/15/19 06:43 Intake & Output 01/14/19 01/15/19 01/15/19 18:59 06:59 18:59 Intake Total 700 180 Balance 700 180 Intake: Oral 700 180 Other: # Voids 3 2 # Bowel Movements 0 0 Active Medications: Current Medications Acetaminophen (Tylenol) 650 mg PO Q4HR PRN PRN Reason: Mild Pain / Temp above 100 Stop: 03/11/19 22:35 Al Hydrox/Mg Hydrox/Simethicone (Maalox) 30 ml PO Q4H PRN PRN Reason: GI DISTRESS Stop: 03/11/19 22:12 Atorvastatin Calcium (Lipitor) 20 mg PO HS [facility] Stop: 03/12/19 20:59 Last Admin: 01/14/19 20:50 Dose: 20 mg Calcium/Vitamin D (Oscal W/Vitamin D) 1 tab PO DAILY [facility] Stop: 03/12/19 08:59 Last Admin: 01/15/19 09:18 Dose: 1 tab Carbidopa/Levodopa (Sinemet 25mg-100 Mg) 2 tab PO TIDWM [facility] Stop: 03/12/19 07:59 Last Admin: 01/15/19 08:00 Dose: 2 tab Divalproex Sodium (Depakote Dr) 125 mg PO BID [facility]; Protocol Stop: 03/12/19 08:59 Last Admin: 01/15/19 09:18 Dose: 125 mg Lorazepam (Ativan) 0.5 mg PO Q4H PRN; Protocol PRN Reason: Anxiety Stop: 03/11/19 22:12 Magnesium Hydroxide (Milk Of Magnesia) 30 ml PO HS PRN PRN Reason: Constipation Metformin HCl (Glucophage) 500 mg PO TID [facility] Stop: 03/12/19 08:59 Last Admin: 01/15/19 09:18 Dose: 500 mg Mirtazapine (Remeron) 7.5 mg PO HS [facility]; Protocol Stop: 03/12/19 20:59 Last Admin: 01/14/19 20:50 Dose: 7.5 mg Multivitamins/Vitamin C (Theragran) 1 tab PO DAILY [facility] Stop: 03/12/19 08:59 Last Admin: 01/15/19 09:18 Dose: 1 tab Olanzapine (Zyprexa) 10 mg PO HS [facility]; Protocol Stop: 03/12/19 20:59 Last Admin: 01/14/19 20:50 Dose: 10 mg Senna (Senna) 8.6 mg PO BID [facility] Stop: 03/12/19 08:59 Last Admin: 01/15/19 09:18 Dose: 8.6 mg Zolpidem Tartrate (Ambien) 5 mg PO HS PRN PRN Reason: Insomnia Stop: 03/11/19 22:12 Last Admin: 01/14/19 20:51 Dose: 5 mg Physical Exam: 63 y/o female patient is still confused, she keeps stating she wants to make phone calls to her shelter to come pick her up and to her son. General: weak HEENT: NC/AT, PERRLA Neck: Supple Lungs: CTAB Cardiovascular: without murmur Extremities: clear Neurological: alert Internal Medicine Assmt/Plan - Assessment Assessment: Psychotic Disorder. Rule out schizoaffective disorder. Anxiety. Depression. HTN. DM. Dyslipidemia. Dementia. Parkinson's Disease. Current Active Problems Problem Status Onset F[place]QUENT FALLS WITH BEHAVIORAL CHANGE Acute - Plan Plan: Continuation of care. Continue present meds as directed. Monitor diet. Psych consult. Fall precaution. supportive care. Continue present care treatment plan. Nutritional Asmnt/Malnutr-PDOC - Dietary Evaluation Malnutrition Findings (Please click <Entered> for more info): see order.
[2019-01-15] MEDS: Atorvastatin Calcium 10 MG TAB PO SCH (20:35)
[2019-01-16] MEDS: Calcium Carb/Vit D 500 mg/200 U Tab PO SCH (08:43)
[2019-01-16] MEDS: Multivitamin Tab PO SCH (08:43)
--- NOTE | 2019-01-16 13:58 | Progress Notes ---
DATE: 01/15/[address] Dasilva. SUBJECTIVE: The patient was resting in bed. When approached, the patient responded to verbal stimulation. The patient opened her eyes. The patient immediately stated that she needs to call the retirement. The patient gets the number to the retirement, the patient stated that she wants to call the retirement after she ate. The patient reported that she only had her dinner. The patient stated that she did not sleep well. However, the patient was not able to say why she has problems sleeping. The patient continued to deny any auditory or visual hallucination. No delusion. OBJECTIVE: The patient was calm and cooperative. The patient appeared to be delusional. The staff reported that the patient continued to request to call the retirement frequently. The patient, at times, had episodes of yelling and screaming. Staff reported that the patient probably needs a higher dose of antipsychotic. ASSESSMENT: The patient continued to be delusional. PLAN: We will increase Zyprexa to 15 mg p.o. at bedtime and monitor the patient's response to the medication. We will consider increasing the Depakote as well for poor impulse control with frequent repeating herself of wanting to call the retirement to come and pick her up. [facility]# [id number]
--- NOTE | 2019-01-16 16:36 | Internal Medicine Prog Note ---
Internal Medicine Subjective - Subjective Service Date: 01/16/19 Patient is:: awake, confused, other (remains paranoid. ) Patient Complaints of:: other (Patient is still psychotic and impulsive.) Per staff patient has:: no adverse event, no episodes of fall, tolerating meds Internal Medicine Objective - Results Result Diagrams: 01/10/19 18:59 01/10/19 18:59 Recent Labs: Laboratory Last Values WBC 10.9 Th/cmm (4.8-10.8) H 01/10/19 18:59 RBC 4.53 Mil/cmm (3.80-5.20) 01/10/19 18:59 Hgb 12.8 gm/dL (12-16) 01/10/19 18:59 Hct 39.4 % (41.0-60) L 01/10/19 18:59 MCV 87.0 fl (81-100) 01/10/19 18:59 MCH 28.2 pg (27.0-31.0) 01/10/19 18:59 MCHC Differential 32.4 pg (28.0-36.0) 01/10/19 18:59 RDW 12.2 % (11.5-20.0) 01/10/19 18:59 Plt Count 260 Th/cmm (150-400) 01/10/19 18:59 MPV 7.0 fl 01/10/19 18:59 Neutrophils % 82.8 % (40.0-80.0) H 01/10/19 18:59 Lymphocytes % 11.6 % (20.0-50.0) L 01/10/19 18:59 Monocytes % 4.8 % (2.0-10.0) 01/10/19 18:59 Eosinophils % 0.8 % (0.0-5.0) 01/10/19 18:59 Basophils % 0.0 % (0.0-2.0) 01/10/19 18:59 PT 9.7 SECONDS (9.5-11.5) 01/10/19 18:59 INR 0.93 (0.5-1.4) 01/10/19 18:59 PTT (Actin FS) 20.6 SECONDS (26.0-38.0) L 01/10/19 18:59 Sodium 140 mEq/L (136-145) 01/10/19 18:59 Potassium 4.4 mEq/L (3.5-5.1) 01/10/19 18:59 Chloride 101 mEq/L (98-107) 01/10/19 18:59 Carbon Dioxide 29.0 mEq/L (21.0-31.0) 01/10/19 18:59 Anion Gap 14.4 (7.0-16.0) 01/10/19 18:59 BUN 24 mg/dL (7-25) 01/10/19 18:59 Creatinine 1.4 mg/dL (0.6-1.2) H 01/10/19 18:59 Est GFR ( Amer) 48.5 ml/min (>90) 01/10/19 18:59 Est GFR (Non-Af Amer) 40.1 ml/min 01/10/19 18:59 BUN/Creatinine Ratio 17.1 01/10/19 18:59 Glucose 160 mg/dL (70-105) H 01/10/19 18:59 Calcium 9.9 mg/dL (8.6-10.3) 01/10/19 18:59 Total Bilirubin 0.4 mg/dL (0.3-1.0) 01/10/19 18:59 AST 16 U/L (13-39) 01/10/19 18:59 ALT 6 U/L (7-52) L 01/10/19 18:59 Alkaline Phosphatase 45 U/L (34-104) 01/10/19 18:59 Troponin I < 0.01 ng/mL (0.01-0.05) L 01/10/19 18:59 Total Protein 6.9 gm/dL (6.0-8.3) 01/10/19 18:59 Albumin 4.0 gm/dL (3.7-5.3) 01/10/19 18:59 Globulin 2.9 gm/dL 01/10/19 18:59 Albumin/Globulin Ratio 1.4 (1.0-1.8) 01/10/19 18:59 Triglycerides 53 mg/dL (<150) 01/11/19 06:15 Cholesterol 109 mg/dL (<200) 01/11/19 06:15 LDL Cholesterol Direct 43 mg/dL (75-193) L 01/11/19 06:15 HDL Cholesterol 48 mg/dL (23-92) 01/11/19 06:15 TSH 0.89 uIU/ml (0.34-5.60) 01/10/19 18:59 Urine Source CLEAN C 01/10/19 19:55 Urine Color YELLOW 01/10/19 19:55 Urine Clarity CLEAR (CLEAR) 01/10/19 19:55 Urine pH 7.0 (4.6 - 8.0) 01/10/19 19:55 Ur Specific [place] 1.020 (1.005-1.030) 01/10/19 19:55 Urine Protein 30 mg/dL (NEGATIVE) H 01/10/19 19:55 Urine Glucose (UA) NEGATIVE mg/dL (NEGATIVE) 01/10/19 19:55 Urine Ketones 15 mg/dL (NEGATIVE) H 01/10/19 19:55 Urine Blood NEGATIVE (NEGATIVE) 01/10/19 19:55 Urine Nitrate NEGATIVE (NEGATIVE) 01/10/19 19:55 Urine Bilirubin SMALL (NEGATIVE) H 01/10/19 19:55 Urine Urobilinogen 1.0 E.U./dL (0.2 - 1.0) 01/10/19 19:55 Ur Leukocyte Esterase TRACE (NEGATIVE) H 01/10/19 19:55 Urine RBC 0-2 /hpf (0-5) 01/10/19 19:55 Urine WBC 6-10 /hpf (0-5) H 01/10/19 19:55 Ur Epithelial Cells MODERATE /lpf (FEW) 01/10/19 19:55 Urine Bacteria 1+ /hpf (NONE SEEN) H 01/10/19 19:55 Fine Granular Casts 0-2 /lpf (NONE SEEN) H 01/10/19 19:55 Urine Mucus MODERATE /lpf (FEW) 01/10/19 19:55 - Physical Exam Vitals and I&O: Vital Signs Temp 97.6 F 01/16/19 14:00 Pulse 97 01/16/19 14:00 Resp 20 01/16/19 14:00 BP 114/65 01/16/19 14:00 Pulse Ox 96 01/16/19 14:00 Intake & Output 01/15/19 01/16/19 01/16/19 18:59 06:59 18:59 Intake Total 960 110 Balance 960 110 Intake: Oral 960 110 Other: # Voids 4 3 # Bowel Movements 1 0 Active Medications: Current Medications Acetaminophen (Tylenol) 650 mg PO Q4HR PRN PRN Reason: Mild Pain / Temp above 100 Stop: 03/11/19 22:35 Al Hydrox/Mg Hydrox/Simethicone (Maalox) 30 ml PO Q4H PRN PRN Reason: GI DISTRESS Stop: 03/11/19 22:12 Atorvastatin Calcium (Lipitor) 20 mg PO HS KAI Stop: 03/12/19 20:59 Last Admin: 01/15/19 20:35 Dose: 20 mg Calcium/Vitamin D (Oscal W/Vitamin D) 1 tab PO DAILY KAI Stop: 03/12/19 08:59 Last Admin: 01/16/19 08:43 Dose: Not Given Carbidopa/Levodopa (Sinemet 25mg-100 Mg) 2 tab PO TIDWM KAI Stop: 03/12/19 07:59 Last Admin: 01/16/19 14:03 Dose: 2 tab Divalproex Sodium (Depakote Dr) 125 mg PO BID KAI; Protocol Stop: 03/12/19 08:59 Last Admin: 01/16/19 08:43 Dose: 125 mg Lorazepam (Ativan) 0.5 mg PO Q4H PRN; Protocol PRN Reason: Anxiety Stop: 03/11/19 22:12 Magnesium Hydroxide (Milk Of Magnesia) 30 ml PO HS PRN PRN Reason: Constipation Metformin HCl (Glucophage) 500 mg PO TID KAI Stop: 03/12/19 08:59 Last Admin: 01/16/19 14:02 Dose: 500 mg Mirtazapine (Remeron) 7.5 mg PO HS [facility]; Protocol Stop: 03/12/19 20:59 Last Admin: 01/15/19 20:35 Dose: 7.5 mg Multivitamins/Vitamin C (Theragran) 1 tab PO DAILY KAI Stop: 03/12/19 08:59 Last Admin: 01/16/19 08:43 Dose: Not Given Olanzapine (Zyprexa) 15 mg PO HS [facility]; Protocol Stop: 03/16/19 20:59 Last Admin: 01/15/19 20:35 Dose: 15 mg Senna (Senna) 8.6 mg PO BID KAI Stop: 03/12/19 08:59 Last Admin: 01/16/19 08:43 Dose: 8.6 mg Zolpidem Tartrate (Ambien) 5 mg PO HS PRN PRN Reason: Insomnia Stop: 03/11/19 22:12 Last Admin: 01/15/19 20:35 Dose: 5 mg General: weak HEENT: NC/AT, PERRLA Neck: Supple Lungs: CTAB Cardiovascular: without murmur Extremities: clear Neurological: alert Internal Medicine Assmt/Plan - Assessment Assessment: Psychotic Disorder. Rule out schizoaffective disorder. Anxiety. Depression. HTN. DM. Dyslipidemia. Dementia. Parkinson's Disease. - Plan Plan: continue current plan of care Nutritional Asmnt/Malnutr-PDOC - Dietary Evaluation Malnutrition Findings (Please click <Entered> for more info): Nutritional Asmnt/Malnutrition Start: 01/15/19 15: 52 Text: Status: Complete Freq: Protocol: Document 01/15/19 15:52 LCELENIG (Rec: 01/15/19 16:00 [email or web address] [id number]) Nutritional Asmnt/Malnutrition Patient General Information Nutritional Screening Moderate Risk Diagnosis psychosis NOS Pertinent Medical Hx/Surgical Hx HTN, DM, dyslipidemia, dmentia , parkinson's, depression Subjective Information Pt seen lying in bed at time of visit, confused, not able to participate in communication. Per EMR, PO intake 25-50% yesterday, usually 100%. Current Diet Order/ Nutrition Support CCHO Pertinent Medications lipitor, oscal w/vit D, remeron, glucophage, senna Pertinent Labs 01/10 Cr 1.4, Glucose 160 Nutritional Hx/Data Height 5 ft 2 in Height (Calculated Centimeters) 157.5 Current Weight (lbs) 115 lb Weight (Calculated Kilograms) 52.2 Weight (Calculated Grams) 95339.1 [place] Body Weight 110 Body Mass Index (BMI) 21.0 Weight Status Approriate GI Symptoms GI Symptoms None Last BM 01/13 Difficult in: None Skin Integrity/Comment: intact Current %PO Good (75-100%) Estimated Nutritional Goals BEE in Kcals: Using Current wt Calories/Kcals/Kg 25-30 Kcals Calculated 9151-8031 Protein: Using Current wt Protein g/k Protein Calculated 52 Fluid: ml 1300-1560ml (1ml/kcal) Nutritional Problem No current Nutrition Prob Problem N/A Malnutrition Alert Is there a minimum of two criteria No selected? Query Text:Check all the applicable criteria. A minimum of two criteria are recommended for diagnosis of either severe or non-severe malnutrition. Malnutrition Related to Morbid Obesity Malnutrition related to morbid obesity No Intervention/Recommendation Comments 1. Continue with current diet as ordered. Assist pt with meals as needed. 2. Monitor PO intake, wt, labs and skin integrity 3. F/U as low risk in 7 days. Expected Outcomes/Goals Expected Outcomes/Goals 1. PO intake to meet at least 75% of nutritional needs. 2. Wt stability, skin to remain intact, labs to approach WNL.
[2019-01-16] MEDS: Atorvastatin Calcium 10 MG TAB PO SCH (20:58)
[2019-01-17] MEDS: Calcium Carb/Vit D 500 mg/200 U Tab PO SCH (09:11)
[2019-01-17] MEDS: Multivitamin Tab PO SCH (09:12)
--- NOTE | 2019-01-17 13:14 | Progress Notes ---
DATE: SUBJECTIVE: The patient was seen in her room, resting in bed. The patient responded to verbal stimuli. The patient continued to repeat herself saying that she wanted this grant writer to call the shelter to come and pick her up. The patient reported that she has been eating and sleeping okay. The patient reported that she was up earlier today. The patient to be focusing mainly on wanting to call the shelter. OBJECTIVE: The patient was calm and cooperative. The patient continued to focus on wanting someone to call the shelter. Staff reported that the patient continued to repeat herself over and over again about calling the shelter. However, the staff reported that the patient seems to be more redirectable. The patient does not persist as long and not as intense as she was before. Her Zyprexa was increased to 15 mg p.o. at bedtime. ASSESSMENT: Schizophrenia, chronic paranoid type. Some improvement. PLAN: We will continue current medication. Consider increasing Zyprexa if the patient does not show much improvement. Consider increasing Depakote as well for the poor impulse control. JOB# [id number]
[2019-01-17] MEDS: Atorvastatin Calcium 10 MG TAB PO SCH (20:33)
--- NOTE | 2019-01-17 23:12 | Progress Notes ---
DATE: SUBJECTIVE: The patient resting in bed with her eyes closed. The patient responded to verbal stimuli. The patient appeared calmer today. The patient did not repeat herself as much as she did in the past. However, the patient continued to say that she wanted to call the [facility]. The patient talked about her son who she said is 24 years old. However, when asked when was the last time she saw her son, the patient was not able to give any coherent response. The patient kept repeating that her son is 24 years old. The patient again requested this telegraphic typewriter operator to call the [facility]pc; however, the patient was not as insistent as she did in the past. The patient reported that she does not eat or sleep well. When asked why she is not eating or sleeping well, the patient was not able to give any coherent answer. OBJECTIVE: The patient appeared to be calmer and not repeating herself as much as she did in the past. The staff reports that the patient continue to be compliant with care and treatment and continue to be yelling on and off, but does not last as long as before. The patient continued to say she wanted to call the [facility]. ASSESSMENT: Schizophrenia, chronic paranoid type. The patient appeared to show some improvement. PLAN: We will continue current medications and adjust medication as needed. JOB# [id number]
--- NOTE | 2019-01-18 01:41 | Progress Notes ---
DATE: 01/16/2019 PSYCHOLOGY PROGRESS NOTE SUBJECTIVE: The patient is seen and is interviewed. Case is discussed with staff. The patient is seen in her room and is somnolent, but arousable verbally. The staff reports the patient has been cooperative and compliant with her care. The patient stated she wanted to know when she is discharging. This is deferred to the attending psychiatrist. OBJECTIVE: Mood is stabilizing. Affect is constricted. Thought process shows to be concrete. The patient denied any auditory or visual hallucinations or delusions. The patient's behavior has been generally compliant with care. ASSESSMENT AND PLAN: The patient is still mostly disoriented and confused. We provided reality orientation, differentiation and integration to assist the patient in focusing on reality-based thoughts versus delusional thought. We provided remotivation for the patient to stay compliant with her care and treatment. We provided coping strategies for phase of life issues as well as for chronic mental illness. We will follow up in 2 days to continue the present treatment if the patient is still admitted on the unit. JOB# [id number] HARLEY
[2019-01-18] MEDS: Calcium Carb/Vit D 500 mg/200 U Tab PO SCH (08:39)
[2019-01-18] MEDS: Multivitamin Tab PO SCH (08:39)
--- NOTE | 2019-01-18 11:40 | Internal Medicine Prog Note ---
Internal Medicine Subjective - Subjective Patient seen and examined:: chart reviewed Patient is:: awake, confused, other (pt doing better, compliant with meds) Patient Complaints of:: other (Patient is still psychotic and impulsive.) Per staff patient has:: no adverse event, no episodes of fall, tolerating meds Internal Medicine Objective - Results Result Diagrams: 01/10/19 18:59 01/10/19 18:59 Recent Labs: Laboratory Last Values WBC 10.9 Th/cmm (4.8-10.8) H 01/10/19 18:59 RBC 4.53 Mil/cmm (3.80-5.20) 01/10/19 18:59 Hgb 12.8 gm/dL (12-16) 01/10/19 18:59 Hct 39.4 % (41.0-60) L 01/10/19 18:59 MCV 87.0 fl (81-100) 01/10/19 18:59 MCH 28.2 pg (27.0-31.0) 01/10/19 18:59 MCHC Differential 32.4 pg (28.0-36.0) 01/10/19 18:59 RDW 12.2 % (11.5-20.0) 01/10/19 18:59 Plt Count 260 Th/cmm (150-400) 01/10/19 18:59 MPV 7.0 fl 01/10/19 18:59 Neutrophils % 82.8 % (40.0-80.0) H 01/10/19 18:59 Lymphocytes % 11.6 % (20.0-50.0) L 01/10/19 18:59 Monocytes % 4.8 % (2.0-10.0) 01/10/19 18:59 Eosinophils % 0.8 % (0.0-5.0) 01/10/19 18:59 Basophils % 0.0 % (0.0-2.0) 01/10/19 18:59 PT 9.7 SECONDS (9.5-11.5) 01/10/19 18:59 INR 0.93 (0.5-1.4) 01/10/19 18:59 PTT (Actin FS) 20.6 SECONDS (26.0-38.0) L 01/10/19 18:59 Sodium 140 mEq/L (136-145) 01/10/19 18:59 Potassium 4.4 mEq/L (3.5-5.1) 01/10/19 18:59 Chloride 101 mEq/L (98-107) 01/10/19 18:59 Carbon Dioxide 29.0 mEq/L (21.0-31.0) 01/10/19 18:59 Anion Gap 14.4 (7.0-16.0) 01/10/19 18:59 BUN 24 mg/dL (7-25) 01/10/19 18:59 Creatinine 1.4 mg/dL (0.6-1.2) H 01/10/19 18:59 Est GFR ( Amer) 48.5 ml/min (>90) 01/10/19 18:59 Est GFR (Non-Af Amer) 40.1 ml/min 01/10/19 18:59 BUN/Creatinine Ratio 17.1 01/10/19 18:59 Glucose 160 mg/dL (70-105) H 01/10/19 18:59 Calcium 9.9 mg/dL (8.6-10.3) 01/10/19 18:59 Total Bilirubin 0.4 mg/dL (0.3-1.0) 01/10/19 18:59 AST 16 U/L (13-39) 01/10/19 18:59 ALT 6 U/L (7-52) L 01/10/19 18:59 Alkaline Phosphatase 45 U/L (34-104) 01/10/19 18:59 Troponin I < 0.01 ng/mL (0.01-0.05) L 01/10/19 18:59 Total Protein 6.9 gm/dL (6.0-8.3) 01/10/19 18:59 Albumin 4.0 gm/dL (3.7-5.3) 01/10/19 18:59 Globulin 2.9 gm/dL 01/10/19 18:59 Albumin/Globulin Ratio 1.4 (1.0-1.8) 01/10/19 18:59 Triglycerides 53 mg/dL (<150) 01/11/19 06:15 Cholesterol 109 mg/dL (<200) 01/11/19 06:15 LDL Cholesterol Direct 43 mg/dL (75-193) L 01/11/19 06:15 HDL Cholesterol 48 mg/dL (23-92) 01/11/19 06:15 TSH 0.89 uIU/ml (0.34-5.60) 01/10/19 18:59 Urine Source CLEAN C 01/10/19 19:55 Urine Color YELLOW 01/10/19 19:55 Urine Clarity CLEAR (CLEAR) 01/10/19 19:55 Urine pH 7.0 (4.6 - 8.0) 01/10/19 19:55 Ur Specific [place] 1.020 (1.005-1.030) 01/10/19 19:55 Urine Protein 30 mg/dL (NEGATIVE) H 01/10/19 19:55 Urine Glucose (UA) NEGATIVE mg/dL (NEGATIVE) 01/10/19 19:55 Urine Ketones 15 mg/dL (NEGATIVE) H 01/10/19 19:55 Urine Blood NEGATIVE (NEGATIVE) 01/10/19 19:55 Urine Nitrate NEGATIVE (NEGATIVE) 01/10/19 19:55 Urine Bilirubin SMALL (NEGATIVE) H 01/10/19 19:55 Urine Urobilinogen 1.0 E.U./dL (0.2 - 1.0) 01/10/19 19:55 Ur Leukocyte Esterase TRACE (NEGATIVE) H 01/10/19 19:55 Urine RBC 0-2 /hpf (0-5) 01/10/19 19:55 Urine WBC 6-10 /hpf (0-5) H 01/10/19 19:55 Ur Epithelial Cells MODERATE /lpf (FEW) 01/10/19 19:55 Urine Bacteria 1+ /hpf (NONE SEEN) H 01/10/19 19:55 Fine Granular Casts 0-2 /lpf (NONE SEEN) H 01/10/19 19:55 Urine Mucus MODERATE /lpf (FEW) 01/10/19 19:55 - Physical Exam Vitals and I&O: Vital Signs Temp 97.6 F 01/18/19 06:40 Pulse 101 01/18/19 08:00 Resp 19 01/18/19 08:00 BP 116/74 01/18/19 06:40 Pulse Ox 98 01/18/19 06:40 Intake & Output 01/17/19 01/18/19 01/18/19 18:59 06:59 18:59 Intake Total 960 120 Balance 960 120 Intake: Oral 960 120 Other: # Voids 4 3 # Bowel Movements 1 Active Medications: Current Medications Acetaminophen (Tylenol) 650 mg PO Q4HR PRN PRN Reason: Mild Pain / Temp above 100 Stop: 03/11/19 22:35 Al Hydrox/Mg Hydrox/Simethicone (Maalox) 30 ml PO Q4H PRN PRN Reason: GI DISTRESS Stop: 03/11/19 22:12 Atorvastatin Calcium (Lipitor) 20 mg PO HS [facility] Stop: 03/12/19 20:59 Last Admin: 01/17/19 20:33 Dose: 20 mg Calcium/Vitamin D (Oscal W/Vitamin D) 1 tab PO DAILY KAI Stop: 03/12/19 08:59 Last Admin: 01/18/19 08:39 Dose: 1 tab Carbidopa/Levodopa (Sinemet 25mg-100 Mg) 2 tab PO TIDWM KAI Stop: 03/12/19 07:59 Last Admin: 01/18/19 08:35 Dose: 2 tab Divalproex Sodium (Depakote Dr) 125 mg PO BID [facility]; Protocol Stop: 03/12/19 08:59 Last Admin: 01/18/19 08:35 Dose: 125 mg Lorazepam (Ativan) 0.5 mg PO Q4H PRN; Protocol PRN Reason: Anxiety Stop: 03/11/19 22:12 Last Admin: 01/18/19 01:43 Dose: 0.5 mg Magnesium Hydroxide (Milk Of Magnesia) 30 ml PO HS PRN PRN Reason: Constipation Metformin HCl (Glucophage) 500 mg PO TID [facility] Stop: 03/12/19 08:59 Last Admin: 01/18/19 08:35 Dose: 500 mg Mirtazapine (Remeron) 7.5 mg PO HS [facility]; Protocol Stop: 03/12/19 20:59 Last Admin: 01/17/19 20:34 Dose: 7.5 mg Multivitamins/Vitamin C (Theragran) 1 tab PO DAILY [facility] Stop: 03/12/19 08:59 Last Admin: 01/18/19 08:39 Dose: Not Given Olanzapine (Zyprexa) 15 mg PO HS [facility]; Protocol Stop: 03/16/19 20:59 Last Admin: 01/17/19 20:35 Dose: 15 mg Senna (Senna) 8.6 mg PO BID [facility] Stop: 03/12/19 08:59 Last Admin: 01/18/19 08:35 Dose: 8.6 mg Zolpidem Tartrate (Ambien) 5 mg PO HS PRN PRN Reason: Insomnia Stop: 03/11/19 22:12 Last Admin: 01/17/19 20:38 Dose: 5 mg Physical Exam: 63 y/o female patient is still confused, she keeps stating she wants to make phone calls to her skilled nursing to come pick her up and to her son. General: weak HEENT: NC/AT, PERRLA Neck: Supple Lungs: CTAB Cardiovascular: without murmur Extremities: clear Neurological: alert Internal Medicine Assmt/Plan - Assessment Assessment: Psychotic Disorder. Rule out schizoaffective disorder. Anxiety. Depression. HTN. DM. Dyslipidemia. Dementia. Parkinson's Disease. Current Active Problems Problem Status Onset FREQUENT FALLS WITH BEHAVIORAL CHANGE Acute - Plan Plan: Continuation of care. Continue present meds as directed. Monitor diet. Psych consult. Fall precaution. supportive care. Continue present care treatment plan. Nutritional Asmnt/Malnutr-PDOC - Dietary Evaluation Malnutrition Findings (Please click <Entered> for more info): Nutritional Asmnt/Malnutrition Start: 01/15/19 15: 52 Text: Status: Complete Freq: Protocol: Document 01/15/19 15:52 LCHENG (Rec: 01/15/19 16:00 [email or web address] [id number]) Nutritional Asmnt/Malnutrition Patient General Information Nutritional Screening Moderate Risk Diagnosis psychosis NOS Pertinent Medical Hx/Surgical Hx HTN, DM, dyslipidemia, dmentia , parkinson's, depression Subjective Information Pt seen lying in bed at time of visit, confused, not able to participate in communication. Per EMR, PO intake 25-50% yesterday, usually 100%. Current Diet Order/ Nutrition Support CCHO Pertinent Medications lipitor, oscal w/vit D, remeron, glucophage, senna Pertinent Labs 01/10 Cr 1.4, Glucose 160 Nutritional Hx/Data Height 1.57 m Height (Calculated Centimeters) 157.5 Current Weight (lbs) 52.163 kg Weight (Calculated Kilograms) 52.2 Weight (Calculated Grams) 84115.1 [place] Body Weight 110 Body Mass Index (BMI) 21.0 Weight Status Approriate GI Symptoms GI Symptoms None Last BM 01/13 Difficult in: None Skin Integrity/Comment: intact Current %PO Good (75-100%) Estimated Nutritional Goals BEE in Kcals: Using Current wt Calories/Kcals/Kg 25-30 Kcals Calculated 6287-8171 Protein: Using Current wt Protein g/k Protein Calculated 52 Fluid: ml 1300-1560ml (1ml/kcal) Nutritional Problem No current Nutrition Prob Problem N/A Malnutrition Alert Is there a minimum of two criteria No selected? Query Text:Check all the applicable criteria. A minimum of two criteria are recommended for diagnosis of either severe or non-severe malnutrition. Malnutrition Related to Morbid Obesity Malnutrition related to morbid obesity No Intervention/Recommendation Comments 1. Continue with current diet as ordered. Assist pt with meals as needed. 2. Monitor PO intake, wt, labs and skin integrity 3. F/U as low risk in 7 days. Expected Outcomes/Goals Expected Outcomes/Goals 1. PO intake to meet at least 75% of nutritional needs. 2. Wt stability, skin to remain intact, labs to approach WNL.
[2019-01-18] MEDS: Atorvastatin Calcium 10 MG TAB PO SCH (21:02)
--- NOTE | 2019-01-18 23:26 | Progress Notes ---
DATE: 01/18/2019 SUBJECTIVE: The patient was asleep in bed when approached. The patient responded to verbal stimuli. As patient opened her eyes and saw this typewriter operator automatic, the patient stated that she wanted to call the [place] [facility]. The patient also stated that she wants to call her son who is 24 years old. The patient continued to repeat herself; however, the patient is not as persistent and repeating herself as much as she did the last couple of days. OBJECTIVE: The patient appeared to be doing better, less repetitive behavior; however, the patient continued to be fixated with calling the [place] [facility] and wanting her son who is 24 years old to be called. Staff reported that the patient seems to be doing somewhat better and more redirectable. The patient does not scream and yell as much as she used to. ASSESSMENT: The patient seemed to be responding to the current medication with less recurrent behavior problem. PLAN: We will continue the patient on current medications and monitor her response to the medication and any potential side effects. JOB# [id number]
[2019-01-19] MEDS: Calcium Carb/Vit D 500 mg/200 U Tab PO SCH (09:02)
[2019-01-19] MEDS: Multivitamin Tab PO SCH (09:03)
--- NOTE | 2019-01-19 20:31 | Internal Medicine Prog Note ---
Internal Medicine Subjective - Subjective Service Date: 01/19/19 Patient seen and examined:: with staff Patient is:: awake, asleep, confused, other (pt doing better, compliant with meds) Patient Complaints of:: other (Patient is psychotic and impulsive.) Per staff patient has:: no adverse event, no episodes of fall, tolerating meds Internal Medicine Objective - Results Result Diagrams: 01/10/19 18:59 01/10/19 18:59 Recent Labs: Laboratory Last Values WBC 10.9 Th/cmm (4.8-10.8) H 01/10/19 18:59 RBC 4.53 Mil/cmm (3.80-5.20) 01/10/19 18:59 Hgb 12.8 gm/dL (12-16) 01/10/19 18:59 Hct 39.4 % (41.0-60) L 01/10/19 18:59 MCV 87.0 fl (81-100) 01/10/19 18:59 MCH 28.2 pg (27.0-31.0) 01/10/19 18:59 MCHC Differential 32.4 pg (28.0-36.0) 01/10/19 18:59 RDW 12.2 % (11.5-20.0) 01/10/19 18:59 Plt Count 260 Th/cmm (150-400) 01/10/19 18:59 MPV 7.0 fl 01/10/19 18:59 Neutrophils % 82.8 % (40.0-80.0) H 01/10/19 18:59 Lymphocytes % 11.6 % (20.0-50.0) L 01/10/19 18:59 Monocytes % 4.8 % (2.0-10.0) 01/10/19 18:59 Eosinophils % 0.8 % (0.0-5.0) 01/10/19 18:59 Basophils % 0.0 % (0.0-2.0) 01/10/19 18:59 PT 9.7 SECONDS (9.5-11.5) 01/10/19 18:59 INR 0.93 (0.5-1.4) 01/10/19 18:59 PTT (Actin FS) 20.6 SECONDS (26.0-38.0) L 01/10/19 18:59 Sodium 140 mEq/L (136-145) 01/10/19 18:59 Potassium 4.4 mEq/L (3.5-5.1) 01/10/19 18:59 Chloride 101 mEq/L (98-107) 01/10/19 18:59 Carbon Dioxide 29.0 mEq/L (21.0-31.0) 01/10/19 18:59 Anion Gap 14.4 (7.0-16.0) 01/10/19 18:59 BUN 24 mg/dL (7-25) 01/10/19 18:59 Creatinine 1.4 mg/dL (0.6-1.2) H 01/10/19 18:59 Est GFR ( Amer) 48.5 ml/min (>90) 01/10/19 18:59 Est GFR (Non-Af Amer) 40.1 ml/min 01/10/19 18:59 BUN/Creatinine Ratio 17.1 01/10/19 18:59 Glucose 160 mg/dL (70-105) H 01/10/19 18:59 Calcium 9.9 mg/dL (8.6-10.3) 01/10/19 18:59 Total Bilirubin 0.4 mg/dL (0.3-1.0) 01/10/19 18:59 AST 16 U/L (13-39) 01/10/19 18:59 ALT 6 U/L (7-52) L 01/10/19 18:59 Alkaline Phosphatase 45 U/L (34-104) 01/10/19 18:59 Troponin I < 0.01 ng/mL (0.01-0.05) L 01/10/19 18:59 Total Protein 6.9 gm/dL (6.0-8.3) 01/10/19 18:59 Albumin 4.0 gm/dL (3.7-5.3) 01/10/19 18:59 Globulin 2.9 gm/dL 01/10/19 18:59 Albumin/Globulin Ratio 1.4 (1.0-1.8) 01/10/19 18:59 Triglycerides 53 mg/dL (<150) 01/11/19 06:15 Cholesterol 109 mg/dL (<200) 01/11/19 06:15 LDL Cholesterol Direct 43 mg/dL (75-193) L 01/11/19 06:15 HDL Cholesterol 48 mg/dL (23-92) 01/11/19 06:15 TSH 0.89 uIU/ml (0.34-5.60) 01/10/19 18:59 Urine Source CLEAN C 01/10/19 19:55 Urine Color YELLOW 01/10/19 19:55 Urine Clarity CLEAR (CLEAR) 01/10/19 19:55 Urine pH 7.0 (4.6 - 8.0) 01/10/19 19:55 Ur Specific [place] 1.020 (1.005-1.030) 01/10/19 19:55 Urine Protein 30 mg/dL (NEGATIVE) H 01/10/19 19:55 Urine Glucose (UA) NEGATIVE mg/dL (NEGATIVE) 01/10/19 19:55 Urine Ketones 15 mg/dL (NEGATIVE) H 01/10/19 19:55 Urine Blood NEGATIVE (NEGATIVE) 01/10/19 19:55 Urine Nitrate NEGATIVE (NEGATIVE) 01/10/19 19:55 Urine Bilirubin SMALL (NEGATIVE) H 01/10/19 19:55 Urine Urobilinogen 1.0 E.U./dL (0.2 - 1.0) 01/10/19 19:55 Ur Leukocyte Esterase TRACE (NEGATIVE) H 01/10/19 19:55 Urine RBC 0-2 /hpf (0-5) 01/10/19 19:55 Urine WBC 6-10 /hpf (0-5) H 01/10/19 19:55 Ur Epithelial Cells MODERATE /lpf (FEW) 01/10/19 19:55 Urine Bacteria 1+ /hpf (NONE SEEN) H 01/10/19 19:55 Fine Granular Casts 0-2 /lpf (NONE SEEN) H 01/10/19 19:55 Urine Mucus MODERATE /lpf (FEW) 01/10/19 19:55 - Physical Exam Vitals and I&O: Vital Signs Temp 97.5 F 01/19/19 20:26 Pulse 98 01/19/19 20:26 Resp 19 01/19/19 20:26 BP 115/67 01/19/19 20:26 Pulse Ox 96 01/19/19 20:26 Intake & Output 01/19/19 01/19/19 01/20/19 06:59 18:59 06:59 Intake Total 120 900 180 Balance 120 900 180 Intake: Oral 120 900 180 Other: # Voids 3 3 2 # Bowel Movements 1 0 Active Medications: Current Medications Acetaminophen (Tylenol) 650 mg PO Q4HR PRN PRN Reason: Mild Pain / Temp above 100 Stop: 03/11/19 22:35 Al Hydrox/Mg Hydrox/Simethicone (Maalox) 30 ml PO Q4H PRN PRN Reason: GI DISTRESS Stop: 03/11/19 22:12 Atorvastatin Calcium (Lipitor) 20 mg PO HS KAI Stop: 03/12/19 20:59 Last Admin: 01/18/19 21:02 Dose: 20 mg Calcium/Vitamin D (Oscal W/Vitamin D) 1 tab PO DAILY KAI Stop: 03/12/19 08:59 Last Admin: 01/19/19 09:02 Dose: 1 tab Carbidopa/Levodopa (Sinemet 25mg-100 Mg) 2 tab PO TIDWM KAI Stop: 03/12/19 07:59 Last Admin: 01/19/19 16:32 Dose: 2 tab Divalproex Sodium (Depakote Dr) 125 mg PO BID KAI; Protocol Stop: 03/12/19 08:59 Last Admin: 01/19/19 16:28 Dose: 125 mg Lorazepam (Ativan) 0.5 mg PO Q4H PRN; Protocol PRN Reason: Anxiety Stop: 03/11/19 22:12 Last Admin: 01/18/19 22:25 Dose: 0.5 mg Magnesium Hydroxide (Milk Of Magnesia) 30 ml PO HS PRN PRN Reason: Constipation Metformin HCl (Glucophage) 500 mg PO TID KAI Stop: 03/12/19 08:59 Last Admin: 01/19/19 14:00 Dose: 500 mg Mirtazapine (Remeron) 7.5 mg PO HS KAI; Protocol Stop: 03/12/19 20:59 Last Admin: 01/18/19 21:03 Dose: 7.5 mg Multivitamins/Vitamin C (Theragran) 1 tab PO DAILY KAI Stop: 03/12/19 08:59 Last Admin: 01/19/19 09:03 Dose: 1 tab Olanzapine (Zyprexa) 15 mg PO HS [facility]; Protocol Stop: 03/16/19 20:59 Last Admin: 01/18/19 21:03 Dose: 15 mg Senna (Senna) 8.6 mg PO BID KAI Stop: 03/12/19 08:59 Last Admin: 01/19/19 16:28 Dose: 8.6 mg Zolpidem Tartrate (Ambien) 5 mg PO HS PRN PRN Reason: Insomnia Stop: 03/11/19 22:12 Last Admin: 01/18/19 21:03 Dose: 5 mg Physical Exam: 63 y/o female patient remains very disoriented. General: weak, other (confused.) HEENT: NC/AT, PERRLA Neck: Supple Lungs: CTAB Cardiovascular: without murmur Abdomen: soft, non-tender Extremities: clear Neurological: alert Internal Medicine Assmt/Plan - Assessment Assessment: Psychotic Disorder. Rule out schizoaffective disorder. Anxiety. Depression. HTN. DM. Dyslipidemia. Dementia. Parkinson's Disease. Current Active Problems Problem Status Onset FREQUENT FALLS WITH BEHAVIORAL CHANGE Acute - Plan Plan: Continuation of care. Continue present meds as directed. Monitor diet. Psych consult. Fall precaution. supportive care. Continue present care management. Nutritional Asmnt/Malnutr-PDOC - Dietary Evaluation Malnutrition Findings (Please click <Entered> for more info): Nutritional Asmnt/Malnutrition Start: 01/15/19 15: 52 Text: Status: Complete Freq: Protocol: Document 01/15/19 15:52 LCHENG (Rec: 01/15/19 16:00 [id number]) Nutritional Asmnt/Malnutrition Patient General Information Nutritional Screening Moderate Risk Diagnosis psychosis NOS Pertinent Medical Hx/Surgical Hx HTN, DM, dyslipidemia, dmentia , parkinson's, depression Subjective Information Pt seen lying in bed at time of visit, confused, not able to participate in communication. Per EMR, PO intake 25-50% yesterday, usually 100%. Current Diet Order/ Nutrition Support CCHO Pertinent Medications lipitor, oscal w/vit D, remeron, glucophage, senna Pertinent Labs 01/10 Cr 1.4, Glucose 160 Nutritional Hx/Data Height 1.57 m Height (Calculated Centimeters) 157.5 Current Weight (lbs) 52.163 kg Weight (Calculated Kilograms) 52.2 Weight (Calculated Grams) 65121.1 [place] Body Weight 110 Body Mass Index (BMI) 21.0 Weight Status Approriate GI Symptoms GI Symptoms None Last BM 01/13 Difficult in: None Skin Integrity/Comment: intact Current %PO Good (75-100%) Estimated Nutritional Goals BEE in Kcals: Using Current wt Calories/Kcals/Kg 25-30 Kcals Calculated 5276-2150 Protein: Using Current wt Protein g/k Protein Calculated 52 Fluid: ml 1300-1560ml (1ml/kcal) Nutritional Problem No current Nutrition Prob Problem N/A Malnutrition Alert Is there a minimum of two criteria No selected? Query Text:Check all the applicable criteria. A minimum of two criteria are recommended for diagnosis of either severe or non-severe malnutrition. Malnutrition Related to Morbid Obesity Malnutrition related to morbid obesity No Intervention/Recommendation Comments 1. Continue with current diet as ordered. Assist pt with meals as needed. 2. Monitor PO intake, wt, labs and skin integrity 3. F/U as low risk in 7 days. Expected Outcomes/Goals Expected Outcomes/Goals 1. PO intake to meet at least 75% of nutritional needs. 2. Wt stability, skin to remain intact, labs to approach WNL.
[2019-01-19] MEDS: Atorvastatin Calcium 10 MG TAB PO SCH (21:08)
--- NOTE | 2019-01-20 03:05 | Progress Notes ---
DATE: 01/19/2019 PSYCHIATRIC PROGRESS NOTE SUBJECTIVE: Staff was spoken to. The patient is interviewed. Mood is noted to be irritable. Affect is constricted. The patient is screaming and the patient is not making much sense. Insight and judgment at this time are noted to be still impaired. Impulse control is also noted to be limited. The patient is currently on olanzapine as well as the Depakote and has been able to tolerate the medications. No side effects to the medications are noted. The patient is still having difficult time to cope with the stress. The patient is getting easily frustrated. The patient has been having anger outburst stating that she was not able to get in touch with her son. The patient continues to be paranoid at this time. No side effects to the medications are noted. Sleep and appetite at this time are noted to be poor. ASSESSMENT: The patient is still having acute mood swings. PLAN: To continue the patient with the supportive therapy. I encouraged the patient to verbalize the concerns rather than to act out. [facility]# [id number]
[2019-01-20] MEDS: Calcium Carb/Vit D 500 mg/200 U Tab PO SCH (09:04)
[2019-01-20] MEDS: Multivitamin Tab PO SCH (09:04)
--- NOTE | 2019-01-20 14:05 | Internal Medicine Prog Note ---
Internal Medicine Subjective - Subjective Service Date: 01/20/19 Patient is:: awake, asleep, confused, other (pt doing better, compliant with meds) Patient Complaints of:: other (Patient is psychotic and impulsive.) Per staff patient has:: no adverse event, no episodes of fall, tolerating meds Internal Medicine Objective - Results Result Diagrams: 01/10/19 18:59 01/10/19 18:59 Recent Labs: Laboratory Last Values WBC 10.9 Th/cmm (4.8-10.8) H 01/10/19 18:59 RBC 4.53 Mil/cmm (3.80-5.20) 01/10/19 18:59 Hgb 12.8 gm/dL (12-16) 01/10/19 18:59 Hct 39.4 % (41.0-60) L 01/10/19 18:59 MCV 87.0 fl (81-100) 01/10/19 18:59 MCH 28.2 pg (27.0-31.0) 01/10/19 18:59 MCHC Differential 32.4 pg (28.0-36.0) 01/10/19 18:59 RDW 12.2 % (11.5-20.0) 01/10/19 18:59 Plt Count 260 Th/cmm (150-400) 01/10/19 18:59 MPV 7.0 fl 01/10/19 18:59 Neutrophils % 82.8 % (40.0-80.0) H 01/10/19 18:59 Lymphocytes % 11.6 % (20.0-50.0) L 01/10/19 18:59 Monocytes % 4.8 % (2.0-10.0) 01/10/19 18:59 Eosinophils % 0.8 % (0.0-5.0) 01/10/19 18:59 Basophils % 0.0 % (0.0-2.0) 01/10/19 18:59 PT 9.7 SECONDS (9.5-11.5) 01/10/19 18:59 INR 0.93 (0.5-1.4) 01/10/19 18:59 PTT (Actin FS) 20.6 SECONDS (26.0-38.0) L 01/10/19 18:59 Sodium 140 mEq/L (136-145) 01/10/19 18:59 Potassium 4.4 mEq/L (3.5-5.1) 01/10/19 18:59 Chloride 101 mEq/L (98-107) 01/10/19 18:59 Carbon Dioxide 29.0 mEq/L (21.0-31.0) 01/10/19 18:59 Anion Gap 14.4 (7.0-16.0) 01/10/19 18:59 BUN 24 mg/dL (7-25) 01/10/19 18:59 Creatinine 1.4 mg/dL (0.6-1.2) H 01/10/19 18:59 Est GFR ( Amer) 48.5 ml/min (>90) 01/10/19 18:59 Est GFR (Non-Af Amer) 40.1 ml/min 01/10/19 18:59 BUN/Creatinine Ratio 17.1 01/10/19 18:59 Glucose 160 mg/dL (70-105) H 01/10/19 18:59 POC Glucose 90 MG/DL (70 - 105) 01/20/19 10:58 Calcium 9.9 mg/dL (8.6-10.3) 01/10/19 18:59 Total Bilirubin 0.4 mg/dL (0.3-1.0) 01/10/19 18:59 AST 16 U/L (13-39) 01/10/19 18:59 ALT 6 U/L (7-52) L 01/10/19 18:59 Alkaline Phosphatase 45 U/L (34-104) 01/10/19 18:59 Troponin I < 0.01 ng/mL (0.01-0.05) L 01/10/19 18:59 Total Protein 6.9 gm/dL (6.0-8.3) 01/10/19 18:59 Albumin 4.0 gm/dL (3.7-5.3) 01/10/19 18:59 Globulin 2.9 gm/dL 01/10/19 18:59 Albumin/Globulin Ratio 1.4 (1.0-1.8) 01/10/19 18:59 Triglycerides 53 mg/dL (<150) 01/11/19 06:15 Cholesterol 109 mg/dL (<200) 01/11/19 06:15 LDL Cholesterol Direct 43 mg/dL (75-193) L 01/11/19 06:15 HDL Cholesterol 48 mg/dL (23-92) 01/11/19 06:15 TSH 0.89 uIU/ml (0.34-5.60) 01/10/19 18:59 Urine Source CLEAN C 01/10/19 19:55 Urine Color YELLOW 01/10/19 19:55 Urine Clarity CLEAR (CLEAR) 01/10/19 19:55 Urine pH 7.0 (4.6 - 8.0) 01/10/19 19:55 Ur Specific [place] 1.020 (1.005-1.030) 01/10/19 19:55 Urine Protein 30 mg/dL (NEGATIVE) H 01/10/19 19:55 Urine Glucose (UA) NEGATIVE mg/dL (NEGATIVE) 01/10/19 19:55 Urine Ketones 15 mg/dL (NEGATIVE) H 01/10/19 19:55 Urine Blood NEGATIVE (NEGATIVE) 01/10/19 19:55 Urine Nitrate NEGATIVE (NEGATIVE) 01/10/19 19:55 Urine Bilirubin SMALL (NEGATIVE) H 01/10/19 19:55 Urine Urobilinogen 1.0 E.U./dL (0.2 - 1.0) 01/10/19 19:55 Ur Leukocyte Esterase TRACE (NEGATIVE) H 01/10/19 19:55 Urine RBC 0-2 /hpf (0-5) 01/10/19 19:55 Urine WBC 6-10 /hpf (0-5) H 01/10/19 19:55 Ur Epithelial Cells MODERATE /lpf (FEW) 01/10/19 19:55 Urine Bacteria 1+ /hpf (NONE SEEN) H 01/10/19 19:55 Fine Granular Casts 0-2 /lpf (NONE SEEN) H 01/10/19 19:55 Urine Mucus MODERATE /lpf (FEW) 01/10/19 19:55 - Physical Exam Vitals and I&O: Vital Signs Temp 97.8 F 01/20/19 06:36 Pulse 70 01/20/19 06:36 Resp 18 01/20/19 06:36 BP 110/70 01/20/19 06:36 Pulse Ox 98 01/20/19 06:36 Intake & Output 01/19/19 01/20/19 01/20/19 18:59 06:59 18:59 Intake Total 900 180 Balance 900 180 Weight (lbs) 115 lb Intake: Oral 900 180 Other: # Voids 3 3 # Bowel Movements 1 0 Weight Source Bedscale Active Medications: Current Medications Acetaminophen (Tylenol) 650 mg PO Q4HR PRN PRN Reason: Mild Pain / Temp above 100 Stop: 03/11/19 22:35 Al Hydrox/Mg Hydrox/Simethicone (Maalox) 30 ml PO Q4H PRN PRN Reason: GI DISTRESS Stop: 03/11/19 22:12 Atorvastatin Calcium (Lipitor) 20 mg PO HS KAI Stop: 03/12/19 20:59 Last Admin: 01/19/19 21:08 Dose: 20 mg Calcium/Vitamin D (Oscal W/Vitamin D) 1 tab PO DAILY KAI Stop: 03/12/19 08:59 Last Admin: 01/20/19 09:04 Dose: 1 tab Carbidopa/Levodopa (Sinemet 25mg-100 Mg) 2 tab PO TIDWM KAI Stop: 03/12/19 07:59 Last Admin: 01/20/19 11:07 Dose: 2 tab Divalproex Sodium (Depakote Dr) 125 mg PO BID KAI; Protocol Stop: 03/12/19 08:59 Last Admin: 01/20/19 09:04 Dose: 125 mg Lorazepam (Ativan) 0.5 mg PO Q4H PRN; Protocol PRN Reason: Anxiety Stop: 03/11/19 22:12 Last Admin: 01/18/19 22:25 Dose: 0.5 mg Magnesium Hydroxide (Milk Of Magnesia) 30 ml PO HS PRN PRN Reason: Constipation Metformin HCl (Glucophage) 500 mg PO TID KAI Stop: 03/12/19 08:59 Last Admin: 01/20/19 13:23 Dose: 500 mg Mirtazapine (Remeron) 7.5 mg PO HS KAI; Protocol Stop: 03/12/19 20:59 Last Admin: 01/19/19 21:09 Dose: 7.5 mg Multivitamins/Vitamin C (Theragran) 1 tab PO DAILY KAI Stop: 03/12/19 08:59 Last Admin: 01/20/19 09:04 Dose: 1 tab Olanzapine (Zyprexa) 15 mg PO HS KAI; Protocol Stop: 03/16/19 20:59 Last Admin: 01/19/19 21:09 Dose: 15 mg Senna (Senna) 8.6 mg PO BID KAI Stop: 03/12/19 08:59 Last Admin: 01/20/19 09:04 Dose: 8.6 mg Zolpidem Tartrate (Ambien) 5 mg PO HS PRN PRN Reason: Insomnia Stop: 03/11/19 22:12 Last Admin: 01/19/19 21:09 Dose: 5 mg General: weak, other (confused.) HEENT: NC/AT, PERRLA Neck: Supple Lungs: CTAB Cardiovascular: without murmur Abdomen: soft, non-tender Extremities: clear Neurological: alert Internal Medicine Assmt/Plan - Assessment Assessment: Psychotic Disorder. Rule out schizoaffective disorder. Anxiety. Depression. HTN. DM. Dyslipidemia. Dementia. Parkinson's Disease. - Plan Plan: continue current plan of care Nutritional Asmnt/Malnutr-PDOC - Dietary Evaluation Malnutrition Findings (Please click <Entered> for more info): Nutritional Asmnt/Malnutrition Start: 01/15/19 15: 52 Text: Status: Complete Freq: Protocol: Document 01/15/19 15:52 LCHENG (Rec: 01/15/19 16:00 LCHENG [id number]) Nutritional Asmnt/Malnutrition Patient General Information Nutritional Screening Moderate Risk Diagnosis psychosis NOS Pertinent Medical Hx/Surgical Hx HTN, DM, dyslipidemia, dmentia , parkinson's, depression Subjective Information Pt seen lying in bed at time of visit, confused, not able to participate in communication. Per EMR, PO intake 25-50% yesterday, usually 100%. Current Diet Order/ Nutrition Support CCHO Pertinent Medications lipitor, oscal w/vit D, remeron, glucophage, senna Pertinent Labs 01/10 Cr 1.4, Glucose 160 Nutritional Hx/Data Height 5 ft 2 in Height (Calculated Centimeters) 157.5 Current Weight (lbs) 115 lb Weight (Calculated Kilograms) 52.2 Weight (Calculated Grams) 98016.1 [place] Body Weight 110 Body Mass Index (BMI) 21.0 Weight Status Approriate GI Symptoms GI Symptoms None Last BM 01/13 Difficult in: None Skin Integrity/Comment: intact Current %PO Good (75-100%) Estimated Nutritional Goals BEE in Kcals: Using Current wt Calories/Kcals/Kg 25-30 Kcals Calculated 4694-2229 Protein: Using Current wt Protein g/k Protein Calculated 52 Fluid: ml 1300-1560ml (1ml/kcal) Nutritional Problem No current Nutrition Prob Problem N/A Malnutrition Alert Is there a minimum of two criteria No selected? Query Text:Check all the applicable criteria. A minimum of two criteria are recommended for diagnosis of either severe or non-severe malnutrition. Malnutrition Related to Morbid Obesity Malnutrition related to morbid obesity No Intervention/Recommendation Comments 1. Continue with current diet as ordered. Assist pt with meals as needed. 2. Monitor PO intake, wt, labs and skin integrity 3. F/U as low risk in 7 days. Expected Outcomes/Goals Expected Outcomes/Goals 1. PO intake to meet at least 75% of nutritional needs. 2. Wt stability, skin to remain intact, labs to approach WNL.
--- NOTE | 2019-01-20 18:29 | Progress Notes ---
DATE: 01/19/2019 PSYCHOLOGY PROGRESS NOTE SUBJECTIVE: The patient is seen and is interviewed. Case is discussed with staff. The patient continues to present as irritable and guarded. The staff reports the patient continues to have yelling episodes. The patient is not making much sense and is not answering the clinical questions relevantly. The patient continues to have anger outbursts. There is some evidence of paranoid ideation as well. OBJECTIVE: Mood is irritable. Affect is constricted. Thought process shows to be confused. The patient did not answer questions about experiencing hallucinations or delusions or suicidal ideation, plan, or intention. Paranoid ideation persists. Mood swings and agitated behavior persist. ASSESSMENT AND PLAN: The patient is continuing to display acute mood fluctuations. We provided de-escalation and limit setting. We provided remotivation for the patient to become compliant with her care and treatment. We encouraged the patient to demonstrate emotional and self-regulation and to verbalize her concerns versus acting out. We will follow up in 2 days if the patient remains on the unit. JOB# [id number] [place]
[2019-01-20] MEDS: Atorvastatin Calcium 10 MG TAB PO SCH (21:12)
--- NOTE | 2019-01-21 06:27 | Progress Notes ---
DATE: 01/20/2019 SUBJECTIVE: Staff was spoken to. The patient is interviewed. Mood is noted to be irritable. Affect is constricted. The patient is still having paranoid delusions. Insight and judgment at this time are noted to be still impaired. Impulse control seems to be limited. The patient is fixated on going back to the [facility]. The patient tends to scream and yell when she does not get her way. ASSESSMENT: The patient is still impulsive and paranoid. PLAN: To continue the patient with the current medications and followup. JOB# [id number]
[2019-01-21] MEDS: Multivitamin Tab PO SCH (08:37)
[2019-01-21] MEDS: Calcium Carb/Vit D 500 mg/200 U Tab PO SCH (08:37)
--- NOTE | 2019-01-21 14:56 | Progress Notes ---
DATE: 01/21/2019 SUBJECTIVE: Staff was spoken to. The patient is interviewed. Mood is noted to be less irritable. Affect is appropriate. The patient's coping skills are noted to be improving at this time. The patient is currently on 125 mg twice a day of the Depakote and has been able to tolerate. The patient is on 15 mg of the olanzapine and the patient with staff are reporting that the patient is too drowsy and hence it is decided to decrease the dose on the olanzapine to 10 mg at bedtime and follow the patient with supportive therapy. JOB# [id number]
--- NOTE | 2019-01-21 15:39 | Internal Medicine Prog Note ---
Internal Medicine Subjective - Subjective Patient seen and examined:: chart reviewed (pt. less irritable ) Patient is:: awake, asleep, confused, other (pt doing better, compliant with meds) Patient Complaints of:: other (Patient is psychotic and impulsive.) Per staff patient has:: no adverse event, no episodes of fall, tolerating meds Internal Medicine Objective - Results Result Diagrams: 01/10/19 18:59 01/10/19 18:59 Recent Labs: Laboratory Last Values WBC 10.9 Th/cmm (4.8-10.8) H 01/10/19 18:59 RBC 4.53 Mil/cmm (3.80-5.20) 01/10/19 18:59 Hgb 12.8 gm/dL (12-16) 01/10/19 18:59 Hct 39.4 % (41.0-60) L 01/10/19 18:59 MCV 87.0 fl (81-100) 01/10/19 18:59 MCH 28.2 pg (27.0-31.0) 01/10/19 18:59 MCHC Differential 32.4 pg (28.0-36.0) 01/10/19 18:59 RDW 12.2 % (11.5-20.0) 01/10/19 18:59 Plt Count 260 Th/cmm (150-400) 01/10/19 18:59 MPV 7.0 fl 01/10/19 18:59 Neutrophils % 82.8 % (40.0-80.0) H 01/10/19 18:59 Lymphocytes % 11.6 % (20.0-50.0) L 01/10/19 18:59 Monocytes % 4.8 % (2.0-10.0) 01/10/19 18:59 Eosinophils % 0.8 % (0.0-5.0) 01/10/19 18:59 Basophils % 0.0 % (0.0-2.0) 01/10/19 18:59 PT 9.7 SECONDS (9.5-11.5) 01/10/19 18:59 INR 0.93 (0.5-1.4) 01/10/19 18:59 PTT (Actin FS) 20.6 SECONDS (26.0-38.0) L 01/10/19 18:59 Sodium 140 mEq/L (136-145) 01/10/19 18:59 Potassium 4.4 mEq/L (3.5-5.1) 01/10/19 18:59 Chloride 101 mEq/L (98-107) 01/10/19 18:59 Carbon Dioxide 29.0 mEq/L (21.0-31.0) 01/10/19 18:59 Anion Gap 14.4 (7.0-16.0) 01/10/19 18:59 BUN 24 mg/dL (7-25) 01/10/19 18:59 Creatinine 1.4 mg/dL (0.6-1.2) H 01/10/19 18:59 Est GFR ( Amer) 48.5 ml/min (>90) 01/10/19 18:59 Est GFR (Non-Af Amer) 40.1 ml/min 01/10/19 18:59 BUN/Creatinine Ratio 17.1 01/10/19 18:59 Glucose 160 mg/dL (70-105) H 01/10/19 18:59 POC Glucose 90 MG/DL (70 - 105) 01/20/19 10:58 Calcium 9.9 mg/dL (8.6-10.3) 01/10/19 18:59 Total Bilirubin 0.4 mg/dL (0.3-1.0) 01/10/19 18:59 AST 16 U/L (13-39) 01/10/19 18:59 ALT 6 U/L (7-52) L 01/10/19 18:59 Alkaline Phosphatase 45 U/L (34-104) 01/10/19 18:59 Troponin I < 0.01 ng/mL (0.01-0.05) L 01/10/19 18:59 Total Protein 6.9 gm/dL (6.0-8.3) 01/10/19 18:59 Albumin 4.0 gm/dL (3.7-5.3) 01/10/19 18:59 Globulin 2.9 gm/dL 01/10/19 18:59 Albumin/Globulin Ratio 1.4 (1.0-1.8) 01/10/19 18:59 Triglycerides 53 mg/dL (<150) 01/11/19 06:15 Cholesterol 109 mg/dL (<200) 01/11/19 06:15 LDL Cholesterol Direct 43 mg/dL (75-193) L 01/11/19 06:15 HDL Cholesterol 48 mg/dL (23-92) 01/11/19 06:15 TSH 0.89 uIU/ml (0.34-5.60) 01/10/19 18:59 Urine Source CLEAN C 01/10/19 19:55 Urine Color YELLOW 01/10/19 19:55 Urine Clarity CLEAR (CLEAR) 01/10/19 19:55 Urine pH 7.0 (4.6 - 8.0) 01/10/19 19:55 Ur Specific [place] 1.020 (1.005-1.030) 01/10/19 19:55 Urine Protein 30 mg/dL (NEGATIVE) H 01/10/19 19:55 Urine Glucose (UA) NEGATIVE mg/dL (NEGATIVE) 01/10/19 19:55 Urine Ketones 15 mg/dL (NEGATIVE) H 01/10/19 19:55 Urine Blood NEGATIVE (NEGATIVE) 01/10/19 19:55 Urine Nitrate NEGATIVE (NEGATIVE) 01/10/19 19:55 Urine Bilirubin SMALL (NEGATIVE) H 01/10/19 19:55 Urine Urobilinogen 1.0 E.U./dL (0.2 - 1.0) 01/10/19 19:55 Ur Leukocyte Esterase TRACE (NEGATIVE) H 01/10/19 19:55 Urine RBC 0-2 /hpf (0-5) 01/10/19 19:55 Urine WBC 6-10 /hpf (0-5) H 01/10/19 19:55 Ur Epithelial Cells MODERATE /lpf (FEW) 01/10/19 19:55 Urine Bacteria 1+ /hpf (NONE SEEN) H 01/10/19 19:55 Fine Granular Casts 0-2 /lpf (NONE SEEN) H 01/10/19 19:55 Urine Mucus MODERATE /lpf (FEW) 01/10/19 19:55 - Physical Exam Vitals and I&O: Vital Signs Temp 97.1 F 01/21/19 14:00 Pulse 18 01/21/19 14:00 Resp 98 01/21/19 14:00 BP 113/73 01/21/19 14:00 Pulse Ox 98 01/21/19 14:00 Intake & Output 01/20/19 01/21/1919 18:59 06:59 18:59 Intake Total 700 240 Balance 700 240 Intake: Oral 700 240 Other: # Voids 3 2 # Bowel Movements 0 0 Active Medications: Current Medications Acetaminophen (Tylenol) 650 mg PO Q4HR PRN PRN Reason: Mild Pain / Temp above 100 Stop: 03/11/19 22:35 Al Hydrox/Mg Hydrox/Simethicone (Maalox) 30 ml PO Q4H PRN PRN Reason: GI DISTRESS Stop: 03/11/19 22:12 Atorvastatin Calcium (Lipitor) 20 mg PO HS KAI Stop: 03/12/19 20:59 Last Admin: 01/20/19 21:12 Dose: 20 mg Calcium/Vitamin D (Oscal W/Vitamin D) 1 tab PO DAILY KAI Stop: 03/12/19 08:59 Last Admin: 01/21/19 08:37 Dose: 1 tab Carbidopa/Levodopa (Sinemet 25mg-100 Mg) 2 tab PO TIDWM KAI Stop: 03/12/19 07:59 Last Admin: 01/21/19 12:37 Dose: 2 tab Divalproex Sodium (Depakote Dr) 125 mg PO BID KAI; Protocol Stop: 03/12/19 08:59 Last Admin: 01/21/19 08:38 Dose: 125 mg Lorazepam (Ativan) 0.5 mg PO Q4H PRN; Protocol PRN Reason: Anxiety Stop: 03/11/19 22:12 Last Admin: 01/18/19 22:25 Dose: 0.5 mg Magnesium Hydroxide (Milk Of Magnesia) 30 ml PO HS PRN PRN Reason: Constipation Metformin HCl (Glucophage) 500 mg PO TID KAI Stop: 03/12/19 08:59 Last Admin: 01/21/19 14:19 Dose: 500 mg Mirtazapine (Remeron) 7.5 mg PO HS KAI; Protocol Stop: 03/12/19 20:59 Last Admin: 01/20/19 21:11 Dose: 7.5 mg Multivitamins/Vitamin C (Theragran) 1 tab PO DAILY KAI Stop: 03/12/19 08:59 Last Admin: 01/21/19 08:37 Dose: 1 tab Olanzapine (Zyprexa) 10 mg PO HS KAI; Protocol Stop: 03/22/19 20:59 Senna (Senna) 8.6 mg PO BID KAI Stop: 03/12/19 08:59 Last Admin: 01/21/19 08:38 Dose: 8.6 mg Zolpidem Tartrate (Ambien) 5 mg PO HS PRN PRN Reason: Insomnia Stop: 03/11/19 22:12 Last Admin: 01/20/19 21:36 Dose: 5 mg Physical Exam: 63 y/o female patient remains very disoriented. General: weak, other (confused.) HEENT: NC/AT, PERRLA Neck: Supple Lungs: CTAB Cardiovascular: without murmur Abdomen: soft, non-tender Extremities: clear Neurological: alert Internal Medicine Assmt/Plan - Assessment Assessment: Psychotic Disorder. Rule out schizoaffective disorder. Anxiety. Depression. HTN. DM. Dyslipidemia. Dementia. Parkinson's Disease. Current Active Problems Problem Status Onset FREQUENT FALLS WITH BEHAVIORAL CHANGE Acute - Plan Plan: Continuation of care. Continue present meds as directed. Monitor diet. Psych consult. Fall precaution. supportive care. Continue present care management. Nutritional Asmnt/Malnutr-PDOC - Dietary Evaluation Malnutrition Findings (Please click <Entered> for more info): Nutritional Asmnt/Malnutrition Start: 01/15/19 15: 52 Text: Status: Complete Freq: Protocol: Document 01/15/19 15:52 LCHENG (Rec: 01/15/19 16:00 [email or web address] [id number]) Nutritional Asmnt/Malnutrition Patient General Information Nutritional Screening Moderate Risk Diagnosis psychosis NOS Pertinent Medical Hx/Surgical Hx HTN, DM, dyslipidemia, dmentia , parkinson's, depression Subjective Information Pt seen lying in bed at time of visit, confused, not able to participate in communication. Per EMR, PO intake 25-50% yesterday, usually 100%. Current Diet Order/ Nutrition Support CCHO Pertinent Medications lipitor, oscal w/vit D, remeron, glucophage, senna Pertinent Labs 01/10 Cr 1.4, Glucose 160 Nutritional Hx/Data Height 1.57 m Height (Calculated Centimeters) 157.5 Current Weight (lbs) 52.163 kg Weight (Calculated Kilograms) 52.2 Weight (Calculated Grams) 62434.1 [place] Body Weight 110 Body Mass Index (BMI) 21.0 Weight Status Approriate GI Symptoms GI Symptoms None Last BM 01/13 Difficult in: None Skin Integrity/Comment: intact Current %PO Good (75-100%) Estimated Nutritional Goals BEE in Kcals: Using Current wt Calories/Kcals/Kg 25-30 Kcals Calculated 3996-5660 Protein: Using Current wt Protein g/k Protein Calculated 52 Fluid: ml 1300-1560ml (1ml/kcal) Nutritional Problem No current Nutrition Prob Problem N/A Malnutrition Alert Is there a minimum of two criteria No selected? Query Text:Check all the applicable criteria. A minimum of two criteria are recommended for diagnosis of either severe or non-severe malnutrition. Malnutrition Related to Morbid Obesity Malnutrition related to morbid obesity No Intervention/Recommendation Comments 1. Continue with current diet as ordered. Assist pt with meals as needed. 2. Monitor PO intake, wt, labs and skin integrity 3. F/U as low risk in 7 days. Expected Outcomes/Goals Expected Outcomes/Goals 1. PO intake to meet at least 75% of nutritional needs. 2. Wt stability, skin to remain intact, labs to approach WNL.
[2019-01-21] MEDS: Atorvastatin Calcium 10 MG TAB PO SCH (20:54)
[2019-01-22] MEDS: Multivitamin Tab PO SCH (08:47)
[2019-01-22] MEDS: Calcium Carb/Vit D 500 mg/200 U Tab PO SCH (08:47)
--- NOTE | 2019-01-22 10:15 | Progress Notes ---
DATE: 01/22/2019 SUBJECTIVE: Staff was spoken to. The patient is interviewed. Mood is noted to be anxious. Affect is appropriate. The patient is not suicidal or homicidal. Insight and judgment are noted to be improving. Impulse control is noted to be fair. Coping skills are also noted to be fair. The patient has been able to verbalize the concerns rather than to act out. No major behavioral problems are reported today. ASSESSMENT: The patient is stabilizing. PLAN: To continue the patient with the supportive therapy. I encouraged the patient to verbalize the concerns rather than to act out. [facility]# [id number]
--- NOTE | 2019-01-22 11:58 | Internal Medicine Prog Note ---
Internal Medicine Subjective - Subjective Service Date: 01/22/19 Patient is:: awake, asleep, confused, other (pt doing better, compliant with meds) Patient Complaints of:: other (Patient is psychotic and impulsive.) Per staff patient has:: no adverse event, no episodes of fall, tolerating meds Internal Medicine Objective - Results Result Diagrams: 01/10/19 18:59 01/10/19 18:59 Recent Labs: Laboratory Last Values WBC 10.9 Th/cmm (4.8-10.8) H 01/10/19 18:59 RBC 4.53 Mil/cmm (3.80-5.20) 01/10/19 18:59 Hgb 12.8 gm/dL (12-16) 01/10/19 18:59 Hct 39.4 % (41.0-60) L 01/10/19 18:59 MCV 87.0 fl (81-100) 01/10/19 18:59 MCH 28.2 pg (27.0-31.0) 01/10/19 18:59 MCHC Differential 32.4 pg (28.0-36.0) 01/10/19 18:59 RDW 12.2 % (11.5-20.0) 01/10/19 18:59 Plt Count 260 Th/cmm (150-400) 01/10/19 18:59 MPV 7.0 fl 01/10/19 18:59 Neutrophils % 82.8 % (40.0-80.0) H 01/10/19 18:59 Lymphocytes % 11.6 % (20.0-50.0) L 01/10/19 18:59 Monocytes % 4.8 % (2.0-10.0) 01/10/19 18:59 Eosinophils % 0.8 % (0.0-5.0) 01/10/19 18:59 Basophils % 0.0 % (0.0-2.0) 01/10/19 18:59 PT 9.7 SECONDS (9.5-11.5) 01/10/19 18:59 INR 0.93 (0.5-1.4) 01/10/19 18:59 PTT (Actin FS) 20.6 SECONDS (26.0-38.0) L 01/10/19 18:59 Sodium 140 mEq/L (136-145) 01/10/19 18:59 Potassium 4.4 mEq/L (3.5-5.1) 01/10/19 18:59 Chloride 101 mEq/L (98-107) 01/10/19 18:59 Carbon Dioxide 29.0 mEq/L (21.0-31.0) 01/10/19 18:59 Anion Gap 14.4 (7.0-16.0) 01/10/19 18:59 BUN 24 mg/dL (7-25) 01/10/19 18:59 Creatinine 1.4 mg/dL (0.6-1.2) H 01/10/19 18:59 Est GFR ( Amer) 48.5 ml/min (>90) 01/10/19 18:59 Est GFR (Non-Af Amer) 40.1 ml/min 01/10/19 18:59 BUN/Creatinine Ratio 17.1 01/10/19 18:59 Glucose 160 mg/dL (70-105) H 01/10/19 18:59 POC Glucose 90 MG/DL (70 - 105) 01/20/19 10:58 Calcium 9.9 mg/dL (8.6-10.3) 01/10/19 18:59 Total Bilirubin 0.4 mg/dL (0.3-1.0) 01/10/19 18:59 AST 16 U/L (13-39) 01/10/19 18:59 ALT 6 U/L (7-52) L 01/10/19 18:59 Alkaline Phosphatase 45 U/L (34-104) 01/10/19 18:59 Troponin I < 0.01 ng/mL (0.01-0.05) L 01/10/19 18:59 Total Protein 6.9 gm/dL (6.0-8.3) 01/10/19 18:59 Albumin 4.0 gm/dL (3.7-5.3) 01/10/19 18:59 Globulin 2.9 gm/dL 01/10/19 18:59 Albumin/Globulin Ratio 1.4 (1.0-1.8) 01/10/19 18:59 Triglycerides 53 mg/dL (<150) 01/11/19 06:15 Cholesterol 109 mg/dL (<200) 01/11/19 06:15 LDL Cholesterol Direct 43 mg/dL (75-193) L 01/11/19 06:15 HDL Cholesterol 48 mg/dL (23-92) 01/11/19 06:15 TSH 0.89 uIU/ml (0.34-5.60) 01/10/19 18:59 Urine Source CLEAN C 01/10/19 19:55 Urine Color YELLOW 01/10/19 19:55 Urine Clarity CLEAR (CLEAR) 01/10/19 19:55 Urine pH 7.0 (4.6 - 8.0) 01/10/19 19:55 Ur Specific [place] 1.020 (1.005-1.030) 01/10/19 19:55 Urine Protein 30 mg/dL (NEGATIVE) H 01/10/19 19:55 Urine Glucose (UA) NEGATIVE mg/dL (NEGATIVE) 01/10/19 19:55 Urine Ketones 15 mg/dL (NEGATIVE) H 01/10/19 19:55 Urine Blood NEGATIVE (NEGATIVE) 01/10/19 19:55 Urine Nitrate NEGATIVE (NEGATIVE) 01/10/19 19:55 Urine Bilirubin SMALL (NEGATIVE) H 01/10/19 19:55 Urine Urobilinogen 1.0 E.U./dL (0.2 - 1.0) 01/10/19 19:55 Ur Leukocyte Esterase TRACE (NEGATIVE) H 01/10/19 19:55 Urine RBC 0-2 /hpf (0-5) 01/10/19 19:55 Urine WBC 6-10 /hpf (0-5) H 01/10/19 19:55 Ur Epithelial Cells MODERATE /lpf (FEW) 01/10/19 19:55 Urine Bacteria 1+ /hpf (NONE SEEN) H 01/10/19 19:55 Fine Granular Casts 0-2 /lpf (NONE SEEN) H 01/10/19 19:55 Urine Mucus MODERATE /lpf (FEW) 01/10/19 19:55 - Physical Exam Vitals and I&O: Vital Signs Temp 98.2 F 01/22/19 06:29 Pulse 84 01/22/19 06:29 Resp 18 01/22/19 06:29 BP 123/77 01/22/19 06:29 Pulse Ox 98 01/22/19 06:29 Intake & Output 01/21/19 01/22/19 01/22/19 18:59 06:59 18:59 Intake Total 1200 120 Balance 1200 120 Intake: Oral 1200 120 Other: # Voids 3 # Bowel Movements 1 Stool Characteristics Soft Active Medications: Current Medications Acetaminophen (Tylenol) 650 mg PO Q4HR PRN PRN Reason: Mild Pain / Temp above 100 Stop: 03/11/19 22:35 Al Hydrox/Mg Hydrox/Simethicone (Maalox) 30 ml PO Q4H PRN PRN Reason: GI DISTRESS Stop: 03/11/19 22:12 Atorvastatin Calcium (Lipitor) 20 mg PO HS KAI Stop: 03/12/19 20:59 Last Admin: 01/21/19 20:54 Dose: 20 mg Calcium/Vitamin D (Oscal W/Vitamin D) 1 tab PO DAILY KAI Stop: 03/12/19 08:59 Last Admin: 01/22/19 08:47 Dose: 1 tab Carbidopa/Levodopa (Sinemet 25mg-100 Mg) 2 tab PO TIDWM KAI Stop: 03/12/19 07:59 Last Admin: 01/22/19 08:47 Dose: 2 tab Divalproex Sodium (Depakote Dr) 125 mg PO BID KAI; Protocol Stop: 03/12/19 08:59 Last Admin: 01/22/19 08:46 Dose: 125 mg Lorazepam (Ativan) 0.5 mg PO Q4H PRN; Protocol PRN Reason: Anxiety Stop: 03/11/19 22:12 Last Admin: 01/22/19 08:46 Dose: 0.5 mg Magnesium Hydroxide (Milk Of Magnesia) 30 ml PO HS PRN PRN Reason: Constipation Metformin HCl (Glucophage) 500 mg PO TID KAI Stop: 03/12/19 08:59 Last Admin: 01/22/19 08:47 Dose: 500 mg Mirtazapine (Remeron) 7.5 mg PO HS KAI; Protocol Stop: 03/12/19 20:59 Last Admin: 01/21/19 20:55 Dose: 7.5 mg Multivitamins/Vitamin C (Theragran) 1 tab PO DAILY KAI Stop: 03/12/19 08:59 Last Admin: 01/22/19 08:47 Dose: 1 tab Olanzapine (Zyprexa) 10 mg PO HS [facility]; Protocol Stop: 03/22/19 20:59 Last Admin: 01/21/19 20:55 Dose: 10 mg Senna (Senna) 8.6 mg PO BID KAI Stop: 03/12/19 08:59 Last Admin: 01/22/19 08:46 Dose: 8.6 mg Zolpidem Tartrate (Ambien) 5 mg PO HS PRN PRN Reason: Insomnia Stop: 03/11/19 22:12 Last Admin: 01/20/19 21:36 Dose: 5 mg General: weak, other (confused.) HEENT: NC/AT, PERRLA Neck: Supple Lungs: CTAB Cardiovascular: without murmur Abdomen: soft, non-tender Extremities: clear Neurological: alert Internal Medicine Assmt/Plan - Assessment Assessment: Psychotic Disorder. Rule out schizoaffective disorder. Anxiety. Depression. HTN. DM. Dyslipidemia. Dementia. Parkinson's Disease. - Plan Plan: continue current plan of care Nutritional Asmnt/Malnutr-PDOC - Dietary Evaluation Malnutrition Findings (Please click <Entered> for more info): Nutritional Asmnt/Malnutrition Start: 01/15/19 15: 52 Text: Status: Complete Freq: Protocol: Document 01/15/19 15:52 LCHENG (Rec: 01/15/19 16:00 LCHENG [id number]) Nutritional Asmnt/Malnutrition Patient General Information Nutritional Screening Moderate Risk Diagnosis psychosis NOS Pertinent Medical Hx/Surgical Hx HTN, DM, dyslipidemia, dmentia , parkinson's, depression Subjective Information Pt seen lying in bed at time of visit, confused, not able to participate in communication. Per EMR, PO intake 25-50% yesterday, usually 100%. Current Diet Order/ Nutrition Support CCHO Pertinent Medications lipitor, oscal w/vit D, remeron, glucophage, senna Pertinent Labs 01/10 Cr 1.4, Glucose 160 Nutritional Hx/Data Height 5 ft 2 in Height (Calculated Centimeters) 157.5 Current Weight (lbs) 115 lb Weight (Calculated Kilograms) 52.2 Weight (Calculated Grams) 25769.1 [place] Body Weight 110 Body Mass Index (BMI) 21.0 Weight Status Approriate GI Symptoms GI Symptoms None Last BM 01/13 Difficult in: None Skin Integrity/Comment: intact Current %PO Good (75-100%) Estimated Nutritional Goals BEE in Kcals: Using Current wt Calories/Kcals/Kg 25-30 Kcals Calculated 7719-8993 Protein: Using Current wt Protein g/k Protein Calculated 52 Fluid: ml 1300-1560ml (1ml/kcal) Nutritional Problem No current Nutrition Prob Problem N/A Malnutrition Alert Is there a minimum of two criteria No selected? Query Text:Check all the applicable criteria. A minimum of two criteria are recommended for diagnosis of either severe or non-severe malnutrition. Malnutrition Related to Morbid Obesity Malnutrition related to morbid obesity No Intervention/Recommendation Comments 1. Continue with current diet as ordered. Assist pt with meals as needed. 2. Monitor PO intake, wt, labs and skin integrity 3. F/U as low risk in 7 days. Expected Outcomes/Goals Expected Outcomes/Goals 1. PO intake to meet at least 75% of nutritional needs. 2. Wt stability, skin to remain intact, labs to approach WNL.
--- NOTE | 2019-01-24 19:24 | Progress Notes ---
DATE: 01/21/2019 PSYCHOLOGY PROGRESS NOTE SUBJECTIVE: The patient is seen and is interviewed. Case is discussed with staff. The patient presents as worried about her discharge. There is some anxiety present, but this is mild. The staff reports the patient has been compliant with her care and treatment. OBJECTIVE: Mood is mildly anxious. Affect is mood congruent. Thought process shows to be confused. The patient denied any hallucinations or delusions. The patient's behavior has been more goal oriented. Staff reports no major behavioral problems. ASSESSMENT AND PLAN: The patient appears to be stabilizing. We provided remotivation for the patient to stay compliant with her care and treatment. We provided coping strategies for phase of life issues. We encouraged the patient to demonstrate emotional and self-regulation and to verbalize her concerns versus acting out. We reviewed the anxiety reduction skill learned in treatment. No followup is indicated as the patient is scheduled to discharge. Prognosis is fair. JOB# [id number] [place]
--- NOTE | 2019-01-25 21:13 | Discharge Summary ---
DATE OF DISCHARGE: 01/22/2019 IDENTIFYING DATA: The patient is a 63-year-old woman, resident of [facility]. JUSTIFICATION OF HOSPITALIZATION: The patient is admitted on a voluntary basis because of her depression and anxiety. CHIEF COMPLAINT: "I am not feeling well." DIAGNOSES AT THE TIME OF ADMISSION: AXIS I: Psychotic disorder, not otherwise specified, rule out schizoaffective disorder. AXIS II: None. AXIS III: As per Dr. Duval. HISTORY OF PRESENT ILLNESS: Please refer to 01/11/2019 dictation done by me. Physical examination was done by Dr. Duval and is noted to be within normal limits. Blood work done at the hospitalization also has been reviewed by him and the patient has been closely monitored. The patient was screaming and yelling most of the time and the patient has to be given the valproic acid 125 mg. The patient's blood sugar has been monitored. The patient has been placed on metformin 500 mg 3 times a day. In view of the insomnia and depression, the patient was given 7.5 mg of the mirtazapine at night time. The patient has been continued on the olanzapine to 15 mg. The patient started to sleep too much and hence the morning dose of the olanzapine has been discontinued. The patient has been placed finally on 10 mg of olanzapine at bedtime. With these medication changes, the patient was observed and was noted to be doing fairly well and finally the patient was discharged to [facility] with recommendation that she is going to be seeking treatment on an outpatient basis. MENTAL STATUS EXAMINATION: At the time of the discharge, the patient noted to be anxious. Affect is appropriate. Not suicidal or homicidal. Insight and judgment are noted to be improving. Impulse control is noted to be fair at the time of the discharge. Condition at the time of discharge is noted to be stable. The patient was discharged on 01/22/2019. [facility]# [id number]
== END 2019-01-22 12:55 | DRG 885 ==
LOC: ER 18:14 → GERO 20:30
PROVIDERS: ADMIT Psychiatry & Neurology Psychiatry; ATTEND Psychiatry & Neurology Psychiatry
DX: F29 Unspecified psychosis not due to a substance or known physiological condition (principal); F25.9 Schizoaffective disorder, unspecified; I10 Essential (primary) hypertension; E11.9 Type 2 diabetes mellitus without complications; G20 Parkinson's disease; E78.5 Hyperlipidemia, unspecified; F02.80 Dementia in other diseases classified elsewhere, unspecified severity, without behavioral disturbance, psychotic disturbance, mood disturbance, and anxiety; F41.9 Anxiety disorder, unspecified; Z79.84 Long term (current) use of oral hypoglycemic drugs
CPT/HCPCS: 36415-UA; 70450-TC; 71045-TC; 80053-TC; 80061-TC; 81001-TC; 82948-90; 83036-90; 84443-TC; 84484-TC; 85025-TC; 85610-TC; 85730-TC; 93005; Z7610